=== PATIENT | male | born 1940 | race Caucasian/White ===

== ENCOUNTER 2017-06-30 14:57 | Inpatient (IN) | payer OTHER, MEDICARE ==
[~2017-06-30] VITALS: Ht 177.8 cm; Wt 77.5 kg
[2017-06-30 14:59] VITALS: BP 141/79; PULSE 89; RESP 15; TEMP 98.4; O2SAT 99
[2017-06-30] MEDS ORDERED: SODIUM CHLORIDE 0.9% FLUSH 10 ML FLUSH IVF PRN (15:45)
[2017-06-30] MEDS ORDERED: FUROSEMIDE 40 MG/4 ML VIAL IV PUSH ONE (15:45)
[2017-06-30 15:51] VITALS: BP 120/79; PULSE 114; RESP 18; O2SAT 97
--- NOTE | 2017-06-30 15:53 | PD ---
HPI Chief Complaint: Respiratory Distress Time Seen by Provider: 15:26 Travel History International Travel<30 days: No Contact w/Intl Traveler<30days: No Traveled to known affect area: No History of Present Illness HPI The patient is a 76-year-old male who presents to the emergency department for shortness of breath. The patient had a myocardial infarction in April 2017 and underwent bypass in [place]. The patient return to [place], [place], where he resides in 4 days ago developed shortness of breath. The patient's shortness of breath is worse with exertion, mild shortness of breath with lying supine, but has progressed over the last 4 days. The patient was seen by a new regional construction manager for himself today, Dr. Clayton, who referred him to the emergency department for evaluation and admission of ischemic cardiomyopathy with pleural effusions. The patient does state he is currently on Coumadin secondary to the recent bypass, denies any history of pulmonary embolism or DVT. The patient denies any acute chest pain, nausea, vomiting, abdominal pain, or diaphoresis. The patient's symptoms are moderate, worse with exertion and lying supine, and there are no current leaving factors. The patient's primary physician is Dr. Lockhart. [facility] Past Medical History Cardiac Catheterization: Yes Cardiovascular Problems: Yes (CABG X 4) Diabetes: Yes Patient Takes Glucophage: No Myocardial Infarction: Yes Tetanus Vaccination: Unknown Influenza Vaccination: Yes Past Surgical History Cardiac Surgery: Yes (5 ARTERIES REPLACED) Cholecystectomy: Yes Coronary Artery Bypass Graft: Yes Other Surgery: Yes (HERNIA REPAIR ) Social History Alcohol Use: No Tobacco Use: No Substance Use: No Allergies-Medications (Allergen,Severity, Reaction): Coded Allergies: aspirin (Verified Allergy, Severe, RESP DISTRESS, 06/30/17) Review of Systems Except as stated in HPI: all other systems reviewed are Neg General / Constitutional: No: Fever HENT: No: Lightheadedness Cardiovascular: Positive: Dyspnea on exertion, No: Chest Pain or Discomfort Respiratory: Positive: Shortness of Breath Gastrointestinal: No: Nausea, Vomiting, Abdominal Pain Genitourinary: No: Dysuria Musculoskeletal: No: Weakness Neurologic: No: Weakness, Dizziness Physical Exam Narrative GENERAL: Awake, alert, very pleasant 76-year-old male who appears his stated age and appears in mild respiratory distress. SKIN: Focused skin assessment warm/dry. HEAD: Atraumatic. Normocephalic. EYES: No injection or drainage. ENT: No nasal bleeding or discharge. Mucous membranes pink and moist. NECK: Trachea midline. No JVD. CARDIOVASCULAR: Regular, tachycardic with a heart rate of 117. Well-healed sternal scar. RESPIRATORY: Mild tachypnea with a respiratory rate of 22. Bowels in the bases bilateral. GASTROINTESTINAL: Abdomen soft, non-tender, nondistended. No rebound tenderness. MUSCULOSKELETAL: No obvious deformities. No clubbing. No cyanosis. Trace edema bilaterally. NEUROLOGICAL: Awake and alert. No obvious cranial nerve deficits. Motor grossly within normal limits. Normal speech. PSYCHIATRIC: Appropriate mood and affect; insight and judgment normal. Data Data Last Documented VS Vital Signs Date Time Temp Pulse Resp B/P (MAP) Pulse Ox O2 Delivery O2 Flow Rate FiO2 06/30/17 15:51 114 18 120/79 (93) 97 Nasal Cannula 2.00 06/30/17 14:59 98.4 Orders Orders Complete Blood Count With Diff (06/30/17 15:35) Comprehensive Metabolic Panel (06/30/17 15:35) B-Type Natriuretic Peptide (06/30/17 15:35) Act Partial Throm Time (Ptt) (06/30/17 15:35) Prothrombin Time / Inr (Pt) (06/30/17 15:35) Magnesium (Mg) (06/30/17 15:35) Ckmb (Isoenzyme) Profile (06/30/17 15:35) Troponin I (06/30/17 15:35) Iv Access Insert/Monitor (06/30/17 15:35) Electrocardiogram (06/30/17 15:35) Ecg Monitoring (06/30/17 15:35) Oximetry (06/30/17 15:35) Oxygen Administration (06/30/17 15:35) Chest, Single Ap (06/30/17 15:35) Sodium Chloride 0.9% Flush (Ns Flush) (06/30/17 15:45) Furosemide Inj (Lasix Inj) (06/30/17 15:45) Consult Cardiology (06/30/17 ) (Hub Use Only)Inp Phy Cons/Ref (06/30/17 ) Admit Order (Ed Use Only) (06/30/17 ) Donor Support Technician / Telemetry [email or web address] (06/30/17 17:22) Vital Signs (Adult) Q4H (06/30/17 17:22) Diet Heart Healthy (06/30/17 Dinner) Activity Oob With Assistance (06/30/17 17:22) Labs Laboratory Tests Test 06/30/17 15:45 White Blood Count 10.7 TH/MM3 Red Blood Count 3.96 MIL/MM3 Hemoglobin 11.4 GM/DL Hematocrit 35.5 % Mean Corpuscular Volume 89.6 FL Mean Corpuscular Hemoglobin 28.8 PG Mean Corpuscular Hemoglobin Concent 32.1 % Red Cell Distribution Width 15.9 % Platelet Count 349 TH/MM3 Mean Platelet Volume 8.2 FL Neutrophils (%) (Auto) 62.7 % Lymphocytes (%) (Auto) 22.8 % Monocytes (%) (Auto) 10.6 % Eosinophils (%) (Auto) 3.2 % Basophils (%) (Auto) 0.7 % Neutrophils # (Auto) 6.7 TH/MM3 Lymphocytes # (Auto) 2.4 TH/MM3 Monocytes # (Auto) 1.1 TH/MM3 Eosinophils # (Auto) 0.3 TH/MM3 Basophils # (Auto) 0.1 TH/MM3 CBC Comment DIFF FINAL Differential Comment Prothrombin Time 24.0 SEC Prothromb Time International Ratio 2.1 RATIO Activated Partial Thromboplast Time 33.1 SEC Blood Urea Nitrogen 10 MG/DL Creatinine 1.13 MG/DL Random Glucose 101 MG/DL Total Protein 7.5 GM/DL Albumin 3.4 GM/DL Calcium Level 8.8 MG/DL Magnesium Level 2.2 MG/DL Alkaline Phosphatase 79 U/L Aspartate Amino Transf (AST/SGOT) 23 U/L Alanine Aminotransferase (ALT/SGPT) 29 U/L Total Bilirubin 0.6 MG/DL Sodium Level 139 MEQ/L Potassium Level 4.3 MEQ/L Chloride Level 108 MEQ/L Carbon Dioxide Level 21.3 MEQ/L Anion Gap 10 MEQ/L Estimat Glomerular Filtration Rate 63 ML/MIN Total Creatine Kinase 71 U/L Troponin I 0.03 NG/ML B-Type Natriuretic Peptide 505 PG/ML MDM Medical Decision Making Medical Screen Exam Complete: Yes Emergency Medical Condition: Yes Medical Record Reviewed: Yes Interpretation(s) EKG reveals sinus tachycardia. Low QRS voltage in the extremity leads. Q wave noted in lead V1, V2, V3, V4, V5, and V6. Last Impressions Chest X-Ray 06/30/17 1535 Signed Impressions: Service Date/Time: Friday, June 30, 2017 15:46 - CONCLUSION: 1. Postsurgical features. 2. Minimal bibasilar airspace disease, presumably atelectasis. Differential considerations include aspiration and less likely pneumonia in the appropriate clinical setting. 3. Probable trace bilateral pleural effusions. Felice Galvan MD Laboratory Tests Test 06/30/17 15:45 White Blood Count 10.7 TH/MM3 Red Blood Count 3.96 MIL/MM3 Hemoglobin 11.4 GM/DL Hematocrit 35.5 % Mean Corpuscular Volume 89.6 FL Mean Corpuscular Hemoglobin 28.8 PG Mean Corpuscular Hemoglobin Concent 32.1 % Red Cell Distribution Width 15.9 % Platelet Count 349 TH/MM3 Mean Platelet Volume 8.2 FL Neutrophils (%) (Auto) 62.7 % Lymphocytes (%) (Auto) 22.8 % Monocytes (%) (Auto) 10.6 % Eosinophils (%) (Auto) 3.2 % Basophils (%) (Auto) 0.7 % Neutrophils # (Auto) 6.7 TH/MM3 Lymphocytes # (Auto) 2.4 TH/MM3 Monocytes # (Auto) 1.1 TH/MM3 Eosinophils # (Auto) 0.3 TH/MM3 Basophils # (Auto) 0.1 TH/MM3 CBC Comment DIFF FINAL Differential Comment Prothrombin Time 24.0 SEC Prothromb Time International Ratio 2.1 RATIO Activated Partial Thromboplast Time 33.1 SEC Blood Urea Nitrogen 10 MG/DL Creatinine 1.13 MG/DL Random Glucose 101 MG/DL Total Protein 7.5 GM/DL Albumin 3.4 GM/DL Calcium Level 8.8 MG/DL Magnesium Level 2.2 MG/DL Alkaline Phosphatase 79 U/L Aspartate Amino Transf (AST/SGOT) 23 U/L Alanine Aminotransferase (ALT/SGPT) 29 U/L Total Bilirubin 0.6 MG/DL Sodium Level 139 MEQ/L Potassium Level 4.3 MEQ/L Chloride Level 108 MEQ/L Carbon Dioxide Level 21.3 MEQ/L Anion Gap 10 MEQ/L Estimat Glomerular Filtration Rate 63 ML/MIN Total Creatine Kinase 71 U/L Troponin I 0.03 NG/ML B-Type Natriuretic Peptide 505 PG/ML Differential Diagnosis Differential diagnosis includes ischemic cardiomyopathy, pleural effusion, pneumonia, pericardial effusion, pericardial tap and on, hemothorax, pneumothorax, pulmonary embolism, ACS. Narrative Course IV was established, labs are drawn and sent, and the patient was placed on cardiac telemetry monitoring and continuous pulse oximetry monitoring. EKG was ordered and interpreted. I discussed the patient with his regional construction manager, Dr. Clayton, made several recommendations including: Lasix 40 mg intravenously twice a day Metoprolol 25 mg twice a day, Valsartan 40 mg every 12 The patient was administered Lasix 40 mg intravenously. Chest x-ray was obtained. INR was sent to lab. The patient's INR is 2.1, I doubt pulmonary embolism with therapeutic INR. Chest x-ray does reveal bilateral pleural effusions. BNP is elevated at 505. The patient has [employer], therefore, patient will be admitted to [facility]. The patient also may need AICD placement versus LifeVest placement after echocardiogram is performed and pending on the patient's ejection fraction. Physician Communication Physician Communication [facility] were paged for admission. I discussed the patient with Dr. Cobian who agrees with admission. Diagnosis Primary Impression: Ischemic cardiomyopathy Additional Impression: Congestive heart failure Qualified Codes: I50.9 - Heart failure, unspecified Admitting Information Admitting Physician Requests: Admit Condition: Stable Rey Tejada MD Jun 30, 2017 15:53
--- NOTE | 2017-06-30 16:03 | RADRPT ---
EXAM DATE/TIME: 06/30/2017 15:46 [facility] COMPARISON: No previous studies available for comparison. INDICATIONS : Shortness of breath. MEDICAL HISTORY : None. SURGICAL HISTORY : Open heart ENCOUNTER: Initial ACUITY: 3 days PAIN SCORE: 5/10 LOCATION: Bilateral chest FINDINGS: Postsurgical features of prior median sternotomy and cardiac surgery. Mild diffuse interstitial promi nence with mild bibasilar airspace disease and questionable trace bilateral pleural effusions. Cardia c silhouette is within normal limits given portable technique. Bony thorax is intact. CONCLUSION: 1. Postsurgical features. 2. Minimal bibasilar airspace disease, presumably atelectasis. Differential considerations include as piration and less likely pneumonia in the appropriate clinical setting. 3. Probable trace bilateral pleural effusions. Felice Galvan MD on June 30, 2017 at 15:59 Board Certified Radiologist. This report was verified electronically.
[2017-06-30 16:05] LABS: AUTOMATED NEUTROPHIL # 6.7 TH/MM3 (1.8-7.7); BASOPHIL # 0.1 TH/MM3 (0-0.2); BASOPHIL % 0.7 % (0.0-2.0); EOSINOPHIL # 0.3 TH/MM3 (0-0.4); EOSINOPHIL % 3.2 % (0.0-4.0); HEMATOCRIT 35.5 % (39.0-51.0); HEMO FLAGS DIFF FINAL; LYMPH % 22.8 % (9.0-44.0); LYMPHOCYTE # 2.4 TH/MM3 (1.0-4.8); MEAN CELL VOLUME 89.6 FL (80.0-100.0); MEAN CORPUSCULAR HEMOGLOBIN 28.8 PG (27.0-34.0); MEAN CORPUSCULAR HGB CONC 32.1 % (32.0-36.0); MONO % 10.6 % (0.0-8.0); NEUT % 62.7 % (16.0-70.0); PLATELET COUNT 349 TH/MM3 (150-450); RED BLOOD COUNT 3.96 MIL/MM3 (4.50-5.90); RED CELL DISTRIBUTION WIDTH 15.9 % (11.6-17.2); WHITE BLOOD COUNT 10.7 TH/MM3 (4.0-11.0)
[2017-06-30 16:22] LABS: APTT (PATIENT) 33.1 SEC (24.3-30.1); INTERNATIONAL NORMALIZED RATIO 2.1 RATIO
[2017-06-30 16:40] LABS: ALKALINE PHOSPHATASE 79 U/L (45-117); ALT (GPT) 29 U/L (12-78); ANION GAP 10 MEQ/L (5-15); AST (GOT) 23 U/L (15-37); BICARBONATE 21.3 MEQ/L (21.0-32.0); BLOOD UREA NITROGEN 10 MG/DL (7-18); CHLORIDE 108 MEQ/L (98-107); GLOMERULAR FILTRATION RATE 63 ML/MIN (>89); MAGNESIUM 2.2 MG/DL (1.5-2.5); POTASSIUM 4.3 MEQ/L (3.5-5.1); SODIUM (NA) 139 MEQ/L (136-145); TOTAL BILIRUBIN ADULT 0.6 MG/DL (0.2-1.0)
[2017-06-30 16:46] LABS: CREATINE KINASE 71 U/L (39-308)
[2017-06-30] MEDS ORDERED: ONDANSETRON HCL 4 MG/2 ML VIAL IVP PRN (17:30)
[2017-06-30] MEDS ORDERED: SENNOSIDES 8.6 MG TAB PO PRN (17:30)
[2017-06-30] MEDS ORDERED: LACTULOSE SYRUP 20 GM/30 ML CUP PO PRN (17:30)
[2017-06-30] MEDS ORDERED: MAGNESIUM HYDROXIDE SUSP 30 ML CUP PO PRN (17:30)
[2017-06-30] MEDS ORDERED: SODIUM CHLORIDE 0.9% FLUSH 10 ML FLUSH IV FLUSH PRN (17:30)
[2017-06-30] MEDS ORDERED: BISACODYL 10 MG SUPP RECTAL PRN (17:30)
[2017-06-30] MEDS ORDERED: NALOXONE HCL 0.4 MG/ML AMP IV PUSH PRN (17:30)
[2017-06-30] MEDS: POTASSIUM CHLORIDE 20 MEQ CONTROLLED RELEASE TAB PO SCH (18:00)
[2017-06-30] MEDS: FUROSEMIDE 40 MG/4 ML VIAL IV PUSH SCH (18:00)
--- NOTE | 2017-06-30 18:12 | HHI.HP ---
HPI Service [facility] Primary Care Physician Nabila Lockhart DO Admission Diagnosis ischemic cardiomyopathy, congestive heart failure Diagnoses: Chief Complaint: Progressive shortness of breath Travel History International Travel<30 Days: No Contact w/Intl Traveler <30 Da: No Traveled to Known Affected Are: No History of Present Illness Written by Joann Stokes, acting as scribe for Dr. Cobian on 06/30/17 at 18: 03. This is an active 76-year-old male without any significant past medical history until he suffered an LA while in [place] in April of this year and underwent CABG4. Patient's postoperative course was complicated by pneumonia. Patient states he spent about 4 weeks in [place] before returning back home to [facility] where he resides. Patient states that he's been "going downhill " for the past several weeks with increasing difficulty with shortness of breath. He states he is unable to lie flat due to increased shortness of breath and as as a result has not been getting much sleep. He states that since the surgery he's had cough and chest pain associated with the cough only but reports both have improved in the past week. He endorses a poor appetite and occasional difficulty with swallowing. He states he has a chalky taste in his mouth. He denies any lower extremity swelling or significant weight gain. He denies any complaints of fever or chills. He denies any weakness or vision changes. He denies any nausea vomiting or abdominal pain. He denies any issues with diarrhea constipation or urinary complaints. Patient reports he has usually walk about a mile a day but last night he was only able to walk about 100 feet before having to stop due to severe dyspnea and wheezing. Patient had his initial cardiology visit with Dr. Clayton today who sent the patient directly over from his office for suspected ischemic cardiomyopathy and decompensated congestive heart failure. Review of Systems Except as stated in HPI: all other systems reviewed are Neg Past Family Social History Past Medical History CAD with recent LA in April 2017 Past Surgical History CABG 4 in [place] April 2017 Cholecystectomy Hernia repair Bilateral rotator cuff repair Reported Medications Medication reconciliation not completed as of yet Allergies: Coded Allergies: aspirin (Verified Allergy, Severe, RESP DISTRESS, 06/30/17) Active Ordered Medications Current Medications Medications (Trade) Dose Ordered Sig/Nava Route Start Time Stop Time Status Last Admin (NS Flush) 2 ml UNSCH PRN IV FLUSH 06/30/17 17:30 (NS Flush) 2 ml BID IV FLUSH 06/30/17 21:00 (Zofran Inj) 4 mg Q6H PRN IVP 06/30/17 17:30 (Narcan Inj) 0.4 mg UNSCH PRN IV PUSH 06/30/17 17:30 (Milk Of Magnesia Liq) 30 ml Q12H PRN PO 06/30/17 17:30 (Senokot) 17.2 mg Q12H PRN PO 06/30/17 17:30 (Dulcolax Supp) 10 mg DAILY PRN RECTAL 06/30/17 17:30 (Lactulose Liq) 30 ml DAILY PRN PO 06/30/17 17:30 (Toprol Xl) 25 mg BID PO 06/30/17 21:00 UNV (Diovan) 40 mg BID PO 06/30/17 21:00 UNV (Aspirin Chew) 81 mg DAILY CHEW 07/01/17 09:00 UNV (Lasix Inj) 40 mg BID@09,18 IV PUSH 06/30/17 18:00 UNV (Aldactone) 25 mg DAILY PO 07/01/17 09:00 UNV (KCl) 20 meq TID PO 06/30/17 18:00 UNV Family History Father, brain tumor Mother, age 68, "pulmonary problems" Social History Patient denies any tobacco use. Denies alcohol consumption. He denies any illicit drug use. Patient is and lives with his . Physical Exam Vital Signs Vital Signs Date Time Temp Pulse Resp B/P (MAP) Pulse Ox O2 Delivery O2 Flow Rate FiO2 06/30/17 15:51 114 18 120/79 (93) 97 Nasal Cannula 2.00 06/30/17 15:51 97 Nasal Cannula 2.00 06/30/17 15:30 119 18 97 Nasal Cannula 2.00 06/30/17 14:59 98.4 89 15 141/79 (99) 99 Physical Exam GENERAL: This is a well-nourished, well-developed patient, in no apparent distress. Sitting up in hospital bed. Awake and alert. and son at the bedside. SKIN: No rashes, ecchymoses or lesions. Cool and dry. HEAD: Atraumatic. Normocephalic. No temporal or scalp tenderness. EYES: Pupils equal round and reactive. Extraocular motions intact. No scleral icterus. No injection or drainage. ENT: Nose without bleeding, purulent drainage or septal hematoma. Throat without erythema or tonsillar hypertrophy but positive for whitish plaque c/w candidiasis. Uvula midline. Airway patent. NECK: Trachea midline. No lymphadenopathy. Supple, nontender, no meningeal signs. CARDIOVASCULAR: Tachycardiac. Midline sternal surgical incision well-healed. RESPIRATORY: BS decreased at bilateral bases. Breath sounds equal bilaterally. No wheezes, rales, or rhonchi. GASTROINTESTINAL: Abdomen soft, non-tender, nondistended. No hepato-splenomegaly , or palpable masses. No guarding. MUSCULOSKELETAL: Extremities without clubbing, cyanosis, or edema. No joint tenderness, effusion, or edema noted. No calf tenderness. NEUROLOGICAL: Awake and alert. Able to move all extremities. Motor and sensory grossly intact. No focal neurologic findings appreciated. Normal speech. Laboratory Laboratory Tests Test 06/30/17 15:45 White Blood Count 10.7 Red Blood Count 3.96 Hemoglobin 11.4 Hematocrit 35.5 Mean Corpuscular Volume 89.6 Mean Corpuscular Hemoglobin 28.8 Mean Corpuscular Hemoglobin Concent 32.1 Red Cell Distribution Width 15.9 Platelet Count 349 Mean Platelet Volume 8.2 Neutrophils (%) (Auto) 62.7 Lymphocytes (%) (Auto) 22.8 Monocytes (%) (Auto) 10.6 Eosinophils (%) (Auto) 3.2 Basophils (%) (Auto) 0.7 Neutrophils # (Auto) 6.7 Lymphocytes # (Auto) 2.4 Monocytes # (Auto) 1.1 Eosinophils # (Auto) 0.3 Basophils # (Auto) 0.1 CBC Comment DIFF FINAL Differential Comment Prothrombin Time 24.0 Prothromb Time International Ratio 2.1 Activated Partial Thromboplast Time 33.1 Blood Urea Nitrogen 10 Creatinine 1.13 Random Glucose 101 Total Protein 7.5 Albumin 3.4 Calcium Level 8.8 Magnesium Level 2.2 Alkaline Phosphatase 79 Aspartate Amino Transf (AST/SGOT) 23 Alanine Aminotransferase (ALT/SGPT) 29 Total Bilirubin 0.6 Sodium Level 139 Potassium Level 4.3 Chloride Level 108 Carbon Dioxide Level 21.3 Anion Gap 10 Estimat Glomerular Filtration Rate 63 Total Creatine Kinase 71 Troponin I 0.03 B-Type Natriuretic Peptide 505 Result Diagram: 06/30/17 1545 06/30/17 1545 Imaging Last Impressions Chest X-Ray 06/30/17 1535 Signed Impressions: Service Date/Time: Friday, June 30, 2017 15:46 - CONCLUSION: 1. Postsurgical features. 2. Minimal bibasilar airspace disease, presumably atelectasis. Differential considerations include aspiration and less likely pneumonia in the appropriate clinical setting. 3. Probable trace bilateral pleural effusions. MD Kirstie Grossman VTE Risk Assessment Caprincony VTE Risk Assessment: Mod/High Risk (score >= 2) Caprini Risk Assessment Model Point Value = 1 Point Value = 2 Point Value = 3 Point Value = 5 Age 41-60 Minor surgery BMI > 25 kg/m2 Swollen legs Varicose veins or History of unexplained or recurrent spontaneous Oral contraceptives or hormone replacement Sepsis (< 1 month) Serious lung disease, including pneumonia (< 1 month) Abnormal pulmonary function Acute myocardial infarction Congestive heart failure (< 1 month) History of inflammatory bowel disease Medical patient at bed rest Age 61-74 Arthroscopic surgery Major open surgery (> 45 min) Laparoscopic surgery (> 45 min) Malignancy Confined to bed (> 72 hours) Immobilizing plaster cast Central venous access Age >= 75 History of VTE Family history of VTE Factor V Leiden Prothrombin [id number] Lupus anticoagulant Anticardiolipin antibodies Elevated serum homocysteine Heparin-induced thrombocytopenia Other congenital or acquired thrombophilia Stroke (< 1 month) Elective arthroplasty Hip, pelvis, or leg fracture Acute spinal cord injury (< 1 month) Prophylaxis Regimen Total Risk Factor Score Risk Level Prophylaxis Regimen 0-1 Low Early ambulation 2 Moderate Order ONE of the following: *Sequential Compression Device (SCD) *Heparin 5000 units SQ BID 3-4 Higher Order ONE of the following medications: *Heparin 5000 units SQ TID *Enoxaparin/Lovenox 40 mg SQ daily (WT < 150 kg, CrCl > 30 mL/min) *Enoxaparin/Lovenox 30 mg SQ daily (WT < 150 kg, CrCl > 10-29 mL/min) *Enoxaparin/Lovenox 30 mg SQ BID (WT < 150 kg, CrCl > 30 mL/min) AND/OR *Sequential Compression Device (SCD) 5 or more Highest Order ONE of the following medications: *Heparin 5000 units SQ TID (Preferred with Epidurals) *Enoxaparin/Lovenox 40 mg SQ daily (WT < 150 kg, CrCl > 30 mL/min) *Enoxaparin/Lovenox 30 mg SQ daily (WT < 150 kg, CrCl > 10-29 mL/min) *Enoxaparin/Lovenox 30 mg SQ BID (WT < 150 kg, CrCl > 30 mL/min) AND *Sequential Compression Device (SCD) Assessment and Plan Assessment and Plan 76-year-old male without any significant past medical history until he suffered an LA while in [place] in April of this year and underwent CABG4 with complaints of progressive shortness of breath sent over from the office by his sweatband shaper Dr. Clayton for decompensated congestive heart failure and suspected ischemic cardiomyopathy. CAD s/p recent LA and CABG x 4 04/2017 on Coumadin CHF, decompensated Suspected ischemic cardiomyopathy - Patient given dose of Lasix in the ED. - Dr. Clayton consulted while patient in the ED and has started patient on ASA daily, Valsartan 40mg BID, Furosemide 40mg IV BID, KCL 20meq po TID and Spironolactone 25mg daily. Additionally, he has ordered 2D echo and will follow up on results. - Monitor electrolytes while diuresing. - Chest x-ray personally interpreted showing minimal bibasilar airspace disease presumably atelectasis and probable trace bilateral pleural effusions - EKG personally reviewed revealing sinus tachycardia and Q waves in leads V1 , V2, V3, V4, V5, and V6 - BNP 505 - Heart healthy diet with low salt and fluid restrictions - continuous cardiac monitoring - CHF teaching - strict I&Os - Supplemental oxygen - monitor PT/INR - PT eval/tx Recent pneumonia following CABG - CXR as stated above. No e/o pneumonia at this time. Patient is afebrile. White count is normal. - monitor respiratory status - IS at bedside, encourage use Oral candidiasis - Nystatin s/s - monitor DVT prophylaxis - Bilateral SCD/RACHEL keee Discussed Condition With ED physician, Dr. Clayton, patient, and son Physician Certification 2 Midnight Certification Type: Admission for Inpatient Services Order for Inpatient Services The services are ordered in accordance with Medicare regulations or non- Medicare payer requirements, as applicable. In the case of services not specified as inpatient-only, they are appropriately provided as inpatient services in accordance with the 2-midnight benchmark. Estimated LOS (days): 3 3 days is the estimated time the patient will need to remain in the hospital, assuming treatment plan goals are met and no additional complications. Post-Hospital Plan: Not yet determined Notes: This note was transcribed by scribe [Joann Stokes]. I, Dr. Yobani Cobian personally performed the history, physical exam, and medical decision making; and confirmed the accuracy of the information in the transcribed note. Authenticated by Dr. Yobani Cobian on 07/01/17 at 11:13. Joann Stokes Jun 30, 2017 18:12 Yobani Cobian MD Jul 01, 2017 11:13
[2017-06-30 18:55] VITALS: BP 110/68; PULSE 108; RESP 16; O2SAT 98
[2017-06-30 19:37] VITALS: BP 103/70; PULSE 109; RESP 24; O2SAT 95
[2017-06-30] MEDS: SODIUM CHLORIDE 0.9% FLUSH 10 ML FLUSH IV FLUSH SCH (21:00)
[2017-06-30] MEDS: METOPROLOL SUCCINATE 25 MG EXTENDED RELEASE TAB PO SCH (21:00)
[2017-06-30] MEDS: VALSARTAN 40 MG TAB PO SCH (21:00)
[2017-06-30 21:49] VITALS: BP 109/64; PULSE 113; RESP 20; O2SAT 95
[2017-07-01] VITALS (20 sets, daily range): BP systolic 84–100; BP diastolic 55–69; PULSE 96–111; RESP 18–20; TEMP 98.1–98.7; O2SAT 94–100
[2017-07-01] MEDS ORDERED: diphenhydrAMINE HCL 25 MG CAP PO ONE (02:45)
[2017-07-01] MEDS ORDERED: TRIA1SPR5 EACH NARE (04:03)
[2017-07-01] MEDS ORDERED: LIPI20TA PO (04:03)
[2017-07-01] MEDS ORDERED: WARF-20 PO (04:03)
[2017-07-01] MEDS ORDERED: FUROSEMIDE 40 MG/4 ML VIAL IV PUSH ONE (04:45)
[2017-07-01 07:52] LABS: BASOPHIL # 0.1 TH/MM3 (0-0.2); BASOPHIL % 0.6 % (0.0-2.0); EOSINOPHIL # 0.3 TH/MM3 (0-0.4); EOSINOPHIL % 3.2 % (0.0-4.0); HEMATOCRIT 34.5 % (39.0-51.0); HEMO FLAGS DIFF FINAL; LYMPH % 17.8 % (9.0-44.0); LYMPHOCYTE # 1.8 TH/MM3 (1.0-4.8); MEAN CELL VOLUME 88.4 FL (80.0-100.0); MEAN CORPUSCULAR HEMOGLOBIN 28.9 PG (27.0-34.0); MEAN CORPUSCULAR HGB CONC 32.6 % (32.0-36.0); MONO % 9.1 % (0.0-8.0); NEUT % 69.3 % (16.0-70.0); PLATELET COUNT 346 TH/MM3 (150-450); RED CELL DISTRIBUTION WIDTH 15.9 % (11.6-17.2); WHITE BLOOD COUNT 10.1 TH/MM3 (4.0-11.0)
--- NOTE | 2017-07-01 07:56 | PD.CARD.PN ---
Subjective Subjective Remarks less SOB, no CP Objective Medications Current Medications Medications (Trade) Dose Ordered Sig/Nava Route Start Time Stop Time Status Last Admin (NS Flush) 2 ml UNSCH PRN IV FLUSH 06/30/17 17:30 (NS Flush) 2 ml BID IV FLUSH 06/30/17 21:00 06/30/17 21:00 (Zofran Inj) 4 mg Q6H PRN IVP 06/30/17 17:30 (Narcan Inj) 0.4 mg UNSCH PRN IV PUSH 06/30/17 17:30 (Milk Of Magnesia Liq) 30 ml Q12H PRN PO 06/30/17 17:30 (Senokot) 17.2 mg Q12H PRN PO 06/30/17 17:30 (Dulcolax Supp) 10 mg DAILY PRN RECTAL 06/30/17 17:30 (Lactulose Liq) 30 ml DAILY PRN PO 06/30/17 17:30 (Toprol Xl) 25 mg BID PO 06/30/17 21:00 06/30/17 21:00 (Diovan) 40 mg BID PO 06/30/17 21:00 06/30/17 21:00 (Lasix Inj) 40 mg BID@09,18 IV PUSH 06/30/17 18:00 (Aldactone) 25 mg DAILY PO 07/01/17 09:00 (KCl) 20 meq TID PO 06/30/17 18:00 06/30/17 18:00 Vital Signs / I&O Vital Signs Date Time Temp Pulse Resp B/P (MAP) Pulse Ox O2 Delivery O2 Flow Rate FiO2 07/01/17 06:27 103 20 98/67 (77) 97 Nasal Cannula 2.00 07/01/17 03:58 104 20 100/61 (74) 100 Nasal Cannula 06/30/17 21:49 113 20 109/64 (79) 95 Nasal Cannula 2.00 06/30/17 19:37 109 24 103/70 (81) 95 Nasal Cannula 06/30/17 18:55 108 16 110/68 (82) 98 Nasal Cannula 2.00 06/30/17 15:51 114 18 120/79 (93) 97 Nasal Cannula 2.00 06/30/17 15:51 97 Nasal Cannula 2.00 06/30/17 15:30 119 18 97 Nasal Cannula 2.00 06/30/17 14:59 98.4 89 15 141/79 (99) 99 I/O 06/30/17 06/30/17 06/30/17 07/01/17 07/01/17 07/01/17 07:00 15:00 23:00 07:00 15:00 23:00 Intake Total 85 ml Output Total 500 ml 1100 ml 200 ml Balance -415 ml -1100 ml -200 ml Intake Oral 85 ml Output Urine Total 500 ml 1100 ml 200 ml # Voids 1 2 Physical Exam GENERAL: Well developed, well nourished. No acute distress. HEENT: Jugular venous pressure is upper nl CHEST: Lungs decreased at bases. Less labored respiratory effort. CARDIAC: Regular rate and rhythm with S3; echo pending ABDOMEN: Soft, nontender, no hepatosplenomegaly. Bowel sounds present. EXTREMITIES: No clubbing, cyanosis, or edema. Laboratory Laboratory Tests Test 06/30/17 15:45 07/01/17 06:10 White Blood Count 10.7 TH/MM3 10.1 TH/MM3 Red Blood Count 3.96 MIL/MM3 3.90 MIL/MM3 Hemoglobin 11.4 GM/DL 11.3 GM/DL Hematocrit 35.5 % 34.5 % Mean Corpuscular Volume 89.6 FL 88.4 FL Mean Corpuscular Hemoglobin 28.8 PG 28.9 PG Mean Corpuscular Hemoglobin Concent 32.1 % 32.6 % Red Cell Distribution Width 15.9 % 15.9 % Platelet Count 349 TH/MM3 346 TH/MM3 Mean Platelet Volume 8.2 FL 9.1 FL Neutrophils (%) (Auto) 62.7 % 69.3 % Lymphocytes (%) (Auto) 22.8 % 17.8 % Monocytes (%) (Auto) 10.6 % 9.1 % Eosinophils (%) (Auto) 3.2 % 3.2 % Basophils (%) (Auto) 0.7 % 0.6 % Neutrophils # (Auto) 6.7 TH/MM3 7.0 TH/MM3 Lymphocytes # (Auto) 2.4 TH/MM3 1.8 TH/MM3 Monocytes # (Auto) 1.1 TH/MM3 0.9 TH/MM3 Eosinophils # (Auto) 0.3 TH/MM3 0.3 TH/MM3 Basophils # (Auto) 0.1 TH/MM3 0.1 TH/MM3 CBC Comment DIFF FINAL DIFF FINAL Differential Comment Prothrombin Time 24.0 SEC Prothromb Time International Ratio 2.1 RATIO Activated Partial Thromboplast Time 33.1 SEC Blood Urea Nitrogen 10 MG/DL Creatinine 1.13 MG/DL Random Glucose 101 MG/DL Total Protein 7.5 GM/DL Albumin 3.4 GM/DL Calcium Level 8.8 MG/DL Magnesium Level 2.2 MG/DL Alkaline Phosphatase 79 U/L Aspartate Amino Transf (AST/SGOT) 23 U/L Alanine Aminotransferase (ALT/SGPT) 29 U/L Total Bilirubin 0.6 MG/DL Sodium Level 139 MEQ/L Potassium Level 4.3 MEQ/L Chloride Level 108 MEQ/L Carbon Dioxide Level 21.3 MEQ/L Anion Gap 10 MEQ/L Estimat Glomerular Filtration Rate 63 ML/MIN Total Creatine Kinase 71 U/L Troponin I 0.03 NG/ML B-Type Natriuretic Peptide 505 PG/ML Imaging Last 24 hours Impressions Chest X-Ray 06/30/17 1535 Signed Impressions: Service Date/Time: Friday, June 30, 2017 15:46 - CONCLUSION: 1. Postsurgical features. 2. Minimal bibasilar airspace disease, presumably atelectasis. Differential considerations include aspiration and less likely pneumonia in the appropriate clinical setting. 3. Probable trace bilateral pleural effusions. Felice Galvan MD Assessment and Plan Problem List: (1) Acute systolic CHF (congestive heart failure), NYHA class 4 ICD Codes: I50.21 - Acute systolic (congestive) heart failure (2) Ischemic cardiomyopathy ICD Codes: I25.5 - Ischemic cardiomyopathy Status: Acute Assessment and Plan Cont diuresis. Shane Clayton MD Jul 01, 2017 07:56
[2017-07-01 08:30] LABS: ANION GAP 9 MEQ/L (5-15); AST (GOT) 17 U/L (15-37); BICARBONATE 24.4 MEQ/L (21.0-32.0); BLOOD UREA NITROGEN 12 MG/DL (7-18); CHLORIDE 106 MEQ/L (98-107); GLOMERULAR FILTRATION RATE 61 ML/MIN (>89); MAGNESIUM 2.1 MG/DL (1.5-2.5); POTASSIUM 3.6 MEQ/L (3.5-5.1); SODIUM (NA) 139 MEQ/L (136-145)
[2017-07-01 08:34] LABS: ALKALINE PHOSPHATASE 76 U/L (45-117); ALT (GPT) 29 U/L (12-78); TOTAL BILIRUBIN ADULT 0.7 MG/DL (0.2-1.0)
[2017-07-01] MEDS: METOPROLOL SUCCINATE 25 MG EXTENDED RELEASE TAB PO SCH ×2 (09:00→21:15)
[2017-07-01] MEDS: SODIUM CHLORIDE 0.9% FLUSH 10 ML FLUSH IV FLUSH SCH ×2 (09:00→21:00)
[2017-07-01] MEDS ORDERED: ASPIRIN 81 MG CHEW TAB CHEW SCH (09:00)
[2017-07-01] MEDS: VALSARTAN 40 MG TAB PO SCH ×2 (09:00→21:15)
--- NOTE | 2017-07-01 09:09 | HHI.PR ---
Subjective Remarks Follow up for CHF exacerbation. Dr. Clayton already saw patient. Patient is feeling better now. Currently on 2L of O2 via NC. No chest pain, fever, chills. No leg swelling. Objective Vitals Vital Signs Date Time Temp Pulse Resp B/P (MAP) Pulse Ox O2 Delivery O2 Flow Rate FiO2 07/01/17 08:12 07/01/17 08:00 97 Nasal Cannula 2.00 07/01/17 08:00 98.3 111 18 96/58 (71) 97 07/01/17 06:27 103 20 98/67 (77) 97 Nasal Cannula 2.00 07/01/17 03:58 104 20 100/61 (74) 100 Nasal Cannula 06/30/17 21:49 113 20 109/64 (79) 95 Nasal Cannula 2.00 06/30/17 19:37 109 24 103/70 (81) 95 Nasal Cannula 06/30/17 18:55 108 16 110/68 (82) 98 Nasal Cannula 2.00 06/30/17 15:51 114 18 120/79 (93) 97 Nasal Cannula 2.00 06/30/17 15:51 97 Nasal Cannula 2.00 06/30/17 15:30 119 18 97 Nasal Cannula 2.00 06/30/17 14:59 98.4 89 15 141/79 (99) 99 I/O 06/30/17 06/30/17 06/30/17 07/01/17 07/01/17 07/01/17 07:00 15:00 23:00 07:00 15:00 23:00 Intake Total 85 ml Output Total 500 ml 1100 ml 200 ml Balance -415 ml -1100 ml -200 ml Intake Oral 85 ml Output Urine Total 500 ml 1100 ml 200 ml # Voids 1 2 Result Diagram: 07/01/17 0610 07/01/17 0610 Imaging Last Impressions Chest X-Ray 06/30/17 1535 Signed Impressions: Service Date/Time: Friday, June 30, 2017 15:46 - CONCLUSION: 1. Postsurgical features. 2. Minimal bibasilar airspace disease, presumably atelectasis. Differential considerations include aspiration and less likely pneumonia in the appropriate clinical setting. 3. Probable trace bilateral pleural effusions. Felice Galvan MD A/P Assessment and Plan 76-year-old male without any significant past medical history until he suffered an IN while in [place] in April of this year and underwent CABG4 with complaints of progressive shortness of breath sent over from the office by his inspector aide Dr. Clayton for decompensated congestive heart failure and suspected ischemic cardiomyopathy. CAD s/p recent IN and CABG x 4 04/2017 on Coumadin CHF, decompensated Suspected ischemic cardiomyopathy - Patient given dose of Lasix in the ED. - Dr. Clayton consulted while patient in the ED - Continue Valsartan 40mg BID, Furosemide 40mg IV BID, KCL 20meq po TID and Spironolactone 25mg daily. - Will consider Torsemide 10mg BID on discharge. - 2D echo pending. - BNP 505 - Heart healthy diet with low salt and fluid restrictions - continuous cardiac monitoring - Supplemental oxygen - monitor PT/INR - PT eval/tx Recent pneumonia following CABG - CXR as stated above. No e/o pneumonia at this time. Patient is afebrile. White count is normal. - monitor respiratory status - IS at bedside, encourage use Full code. Warfarin. Patient was placed on warfarin after CABG. Will discuss with Dr. Clayton regarding the need for Warfarin. Jennifer Card DO Jul 01, 2017 9:09 am
[2017-07-01] MEDS ORDERED: TEMAZEPAM 7.5 MG CAP PO PRN (09:15)
[2017-07-01] MEDS: POTASSIUM CHLORIDE 20 MEQ CONTROLLED RELEASE TAB PO SCH ×3 (10:02→18:06)
[2017-07-01] MEDS: SPIRONOLACTONE 25 MG TAB PO SCH (10:02)
[2017-07-01] MEDS: FUROSEMIDE 40 MG/4 ML VIAL IV PUSH SCH ×2 (10:02→18:07)
--- NOTE | 2017-07-01 18:30 | ECHRPT ---
Indication: CARDIOMYOPATHY CONCLUSIONS Moderately dilated left ventricle. Wall thickness is normal. The left ventricular systolic function is severely reduced with an estimated ejection fraction less than 20%. wall motion preserved at bases, apex appears akinetic There is diffuse global hypokinesis with distinct regional wall motion abnormalities. Moderate to severe mitral valve regurgitation There is mild tricuspid valve regurgitation. The estimated pulmonary arterial pressure is 47 mmHg. BP: 141 / 79 HR: Rhythm: Sinus MEASUREMENTS (Male / Female) Normal Values Technical Quality:Technically difficult study 2D ECHO LV Diastolic Diameter PLAX 6.4 cm 4.2 - 5.9 / 3.9 - 5.3 cm LV Systolic Diameter PLAX 5.8 cm IVS Diastolic Thickness 0.6 cm 0.6 - 1.0 / 0.6 - 0.9 cm LVPW Diastolic Thickness 0.7 cm 0.6 - 1.0 / 0.6 - 0.9 cm LV Relative Wall Thickness 0.2 LVOT Diameter 1.9 cm Aortic Root Diameter 2.8 cm LA Systolic Diameter LX 3.9 cm 3.0 - 4.0 / 2.7 - 3.8 cm M-MODE AV Cusp Separation MM 1.5 cm DOPPLER AV Peak Velocity 85.5 cm/s AV Peak Gradient 2.9 mmHg AV Mean Gradient 2.0 mmHg AV Velocity Time Integral 12.2 cm LVOT Peak Velocity 51.9 cm/s LVOT Peak Gradient 1.1 mmHg LVOT Velocity Time Integral 7.5 cm AV Area Cont Eq vti 1.7 cm AV Area Cont Eq pk 1.7 cm Mitral E Point Velocity 98.7 cm/s Mitral A Point Velocity 17.3 cm/s Mitral E to A Ratio 5.7 LV E' Lateral Velocity 4.3 cm/s Mitral E to LV E' Lateral Ratio 23.0 LV E' Septal Velocity 8.4 cm/s Mitral E to LV E' Septal Ratio 11.8 TR Peak Velocity 304.0 cm/s TR Peak Gradient 37.0 mmHg Right Atrial Pressure 10.0 mmHg Pulmonary Artery Systolic Pressu 47.0 mmHg Right Ventricular Systolic Press 47.0 mmHg PV Peak Velocity 41.4 cm/s PV Peak Gradient 0.7 mmHg FINDINGS LEFT VENTRICLE Moderately dilated left ventricle. Wall thickness is normal. The left ventricular systolic function is severely reduced with an estimated ejection fraction less than 20%. There is diffuse global hypokinesis with distinct regional wall motion abnormalities. MITRAL VALVE Moderate mitral valve regurgitation. TRICUSPID VALVE There is mild tricuspid valve regurgitation. The estimated pulmonary arterial pressure is 47 mmHg. Mert Caicedo MD, FACC, [facility] (Electronically Signed) Final Date:01 July 2017 18:30
[2017-07-01] MEDS ORDERED: METF500T PO (21:06)
[2017-07-02] VITALS (25 sets, daily range): BP systolic 86–91; BP diastolic 57–63; PULSE 97–115; RESP 18–19; TEMP 97.7–98.3; O2SAT 93–97
[2017-07-02 07:26] LABS: BICARBONATE 21.9 MEQ/L (21.0-32.0); MAGNESIUM 2.1 MG/DL (1.5-2.5)
[2017-07-02 07:35] LABS: POTASSIUM 4.6 MEQ/L (3.5-5.1)
--- NOTE | 2017-07-02 07:38 | EKG ---
Date Performed: 06/30/2017 Time Performed: 16:00:26 PTAGE: 76 years EKG: SINUS TACHYCARDIA POSSIBLE LEFT ATRIAL ENLARGEMENT LOW QRS VOLTAGE IN EXTREMITY LEADS ANTER OLATERAL MYOCARDIAL INFARCTION, AGE UNDETERMINED ACUTE [place] NO PREVIOUS TRACING DOCTOR: Mert Caicedo Interpretating Date/Time 07/02/2017 07:37:07
[2017-07-02] MEDS: SPIRONOLACTONE 25 MG TAB PO SCH (09:00)
[2017-07-02] MEDS: METOPROLOL SUCCINATE 25 MG EXTENDED RELEASE TAB PO SCH ×2 (09:00→20:39)
[2017-07-02] MEDS: VALSARTAN 40 MG TAB PO SCH ×2 (09:00→20:39)
[2017-07-02] MEDS: POTASSIUM CHLORIDE 20 MEQ CONTROLLED RELEASE TAB PO SCH (09:26)
[2017-07-02] MEDS: FUROSEMIDE 40 MG/4 ML VIAL IV PUSH SCH ×2 (09:27→17:09)
[2017-07-02] MEDS: SODIUM CHLORIDE 0.9% FLUSH 10 ML FLUSH IV FLUSH SCH ×2 (09:29→20:39)
--- NOTE | 2017-07-02 09:32 | HHI.PR ---
Subjective Remarks Pt states that he is feeling better. SOB is improved. Gets some chest discomfort whenever he coughs but this is not new for him. No chest pain at this time. No nausea or vomiting. Objective Vitals Vital Signs Date Time Temp Pulse Resp B/P (MAP) Pulse Ox O2 Delivery O2 Flow Rate FiO2 07/02/17 09:00 107 07/02/17 08:00 102 07/02/17 07:00 94 Room Air 07/02/17 07:00 107 07/02/17 07:00 98.1 104 19 88/60 (69) 94 07/02/17 06:00 97 07/02/17 05:00 101 07/02/17 04:00 102 07/02/17 03:00 102 07/02/17 03:00 95 Room Air 07/02/17 03:00 97.7 104 18 91/63 (72) 95 07/02/17 02:00 100 07/02/17 01:00 102 07/02/17 00:00 100 07/01/17 23:10 94 Nasal Cannula 2.00 07/01/17 23:10 98.2 99 18 88/57 (67) 94 07/01/17 23:00 101 07/01/17 22:00 102 07/01/17 21:00 104 07/01/17 20:30 98.1 105 18 95/69 (78) 97 07/01/17 20:30 97 Nasal Cannula 2.00 07/01/17 20:00 106 07/01/17 19:00 106 07/01/17 18:00 109 07/01/17 17:00 106 07/01/17 16:00 99 07/01/17 15:00 98.2 102 20 88/60 (69) 96 07/01/17 15:00 106 07/01/17 15:00 98 Room Air 07/01/17 14:00 110 07/01/17 14:00 96 Nasal Cannula 1.00 07/01/17 13:00 103 07/01/17 12:00 98 07/01/17 11:00 98.7 96 18 84/58 (67) 99 07/01/17 11:00 99 Nasal Cannula 2.00 07/01/17 11:00 100 07/01/17 10:00 100 07/01/17 10:00 86/55 (65) I/O 07/01/17 07/01/17 07/01/17 07/02/17 07/02/17 07/02/17 07:00 15:00 23:00 07:00 15:00 23:00 Intake Total 720 ml 360 ml Output Total 1100 ml 200 ml 700 ml 900 ml Balance -1100 ml -200 ml 20 ml -540 ml Intake Oral 720 ml 360 ml Output Urine Total 1100 ml 200 ml 700 ml 900 ml # Voids 2 # Bowel Movements 1 0 Result Diagram: 07/01/17 0610 07/02/17 0504 Imaging Last Impressions Chest X-Ray 06/30/17 1535 Signed Impressions: Service Date/Time: Friday, June 30, 2017 15:46 - CONCLUSION: 1. Postsurgical features. 2. Minimal bibasilar airspace disease, presumably atelectasis. Differential considerations include aspiration and less likely pneumonia in the appropriate clinical setting. 3. Probable trace bilateral pleural effusions. Felice Galvan MD Objective Remarks GENERAL APPEARANCE: This 76 year old patient is a well-developed, well-nourished , sitting up on side of bed. SKIN: Skin is warm and dry without swelling. HEENT: Airway is patent. Extra ocular motions are intact. LUNGS: Equal and bilateral breath sounds without wheezes HEART: regular rate and rhythm without murmur ABDOMEN: Soft, non tender, no guarding or rebound. EXTREMITIES: no edema. NEUROLOGIC: awake and alert. moves all extremities w no difficulty. A/P Assessment and Plan 76-year-old male without any significant past medical history until he suffered an OK while in [place] in April of this year and underwent CABG4 with complaints of progressive shortness of breath sent over from the office by his change coordinator Dr. Clayton for decompensated congestive heart failure and suspected ischemic cardiomyopathy. CAD s/p recent OK and CABG x 4 04/2017 on Coumadin, pt not aware why he was placed on this. tells me that Dr. Clayton is looking into this and he states that he has had trouble getting his INR therapeutic CHF, decompensated Suspected ischemic cardiomyopathy - s/p Lasix in the ED and now on lasix 40mg IV BID. - Dr. Clayton following. - Continue Valsartan 40mg BID, Furosemide 40mg IV BID, KCL 20meq po TID and Spironolactone 25mg daily w holding parameters however, pt will not get it this morning as BP's in the 90's - 2D echo shows EF of 20% and mod to severe mitral valve regurg. - BNP 505 - Heart healthy diet with low salt <2g/day and fluid restrictions at 1500ml/ day - continuous cardiac monitoring - Supplemental oxygen - monitor PT/INR. pharmacy consult placed for assistance w coumadin management. - PT eval/tx Recent pneumonia following CABG - CXR as stated above. No e/o pneumonia at this time. Patient is afebrile. White count is normal. - monitor respiratory status - IS at bedside, encourage use DVT proph:. Warfarin. Patient was placed on warfarin after CABG. Per pt, Dr. Clayton is looking into this however pt doesn't know why he was started on the coumadin. Discharge Planning continue current management. Cards recs appreciated. Melissa Thakur MD Jul 02, 2017 09:32
--- NOTE | 2017-07-02 11:32 | PD.CARD.PN ---
Subjective Subjective Remarks less SOB, no CP Objective Medications Current Medications Medications (Trade) Dose Ordered Sig/Nava Route Start Time Stop Time Status Last Admin (NS Flush) 2 ml UNSCH PRN IV FLUSH 06/30/17 17:30 (NS Flush) 2 ml BID IV FLUSH 06/30/17 21:00 07/02/17 09:29 (Zofran Inj) 4 mg Q6H PRN IVP 06/30/17 17:30 (Narcan Inj) 0.4 mg UNSCH PRN IV PUSH 06/30/17 17:30 (Milk Of Magnesia Liq) 30 ml Q12H PRN PO 06/30/17 17:30 (Senokot) 17.2 mg Q12H PRN PO 06/30/17 17:30 (Dulcolax Supp) 10 mg DAILY PRN RECTAL 06/30/17 17:30 (Lactulose Liq) 30 ml DAILY PRN PO 06/30/17 17:30 (Toprol Xl) 25 mg BID PO 06/30/17 21:00 07/01/17 21:15 (Diovan) 40 mg BID PO 06/30/17 21:00 07/01/17 21:15 (Lasix Inj) 40 mg BID@09,18 IV PUSH 06/30/17 18:00 07/02/17 09:27 (Aldactone) 25 mg DAILY PO 07/01/17 09:00 07/01/17 10:02 (Restoril) 7.5 mg HS PRN PO 07/01/17 09:15 Pharmacy Profile Note 0 ml @ 0 mls/hr UNSCH OTHER 07/02/17 10:00 UNV (Lipitor) 20 mg HS PO 07/02/17 21:00 UNV (Coumadin) 4 mg DAILY PO 07/03/17 09:00 UNV (KCl) 20 meq DAILY PO 07/03/17 09:00 UNV Vital Signs / I&O Vital Signs Date Time Temp Pulse Resp B/P (MAP) Pulse Ox O2 Delivery O2 Flow Rate FiO2 07/02/17 11:00 101 07/02/17 11:00 95 Room Air 07/02/17 11:00 98.1 100 18 88/62 (71) 95 07/02/17 10:00 97 07/02/17 09:00 107 07/02/17 08:00 102 07/02/17 07:00 94 Room Air 07/02/17 07:00 107 07/02/17 07:00 98.1 104 19 88/60 (69) 94 07/02/17 06:00 97 07/02/17 05:00 101 07/02/17 04:00 102 07/02/17 03:00 102 07/02/17 03:00 95 Room Air 07/02/17 03:00 97.7 104 18 91/63 (72) 95 07/02/17 02:00 100 07/02/17 01:00 102 07/02/17 00:00 100 07/01/17 23:10 94 Nasal Cannula 2.00 07/01/17 23:10 98.2 99 18 88/57 (67) 94 07/01/17 23:00 101 07/01/17 22:00 102 07/01/17 21:00 104 07/01/17 20:30 98.1 105 18 95/69 (78) 97 07/01/17 20:30 97 Nasal Cannula 2.00 07/01/17 20:00 106 07/01/17 19:00 106 07/01/17 18:00 109 07/01/17 17:00 106 07/01/17 16:00 99 07/01/17 15:00 98.2 102 20 88/60 (69) 96 07/01/17 15:00 106 07/01/17 15:00 98 Room Air 07/01/17 14:00 110 07/01/17 14:00 96 Nasal Cannula 1.00 07/01/17 13:00 103 07/01/17 12:00 98 I/O 07/01/17 07/01/17 07/01/17 07/02/17 07/02/17 07/02/17 07:00 15:00 23:00 07:00 15:00 23:00 Intake Total 720 ml 360 ml Output Total 1100 ml 200 ml 700 ml 900 ml Balance -1100 ml -200 ml 20 ml -540 ml Intake Oral 720 ml 360 ml Output Urine Total 1100 ml 200 ml 700 ml 900 ml # Voids 2 # Bowel Movements 1 0 Physical Exam GENERAL: Well developed, well nourished. No acute distress. HEENT: Jugular venous pressure is upper nl CHEST: Lungs decreased at bases. Less labored respiratory effort. CARDIAC: Regular rate and rhythm with S3; echo pending ABDOMEN: Soft, nontender, no hepatosplenomegaly. Bowel sounds present. EXTREMITIES: No clubbing, cyanosis, or edema. Laboratory Laboratory Tests Test 07/02/17 05:04 Blood Urea Nitrogen 14 MG/DL Creatinine 1.19 MG/DL Random Glucose 134 MG/DL Calcium Level 8.7 MG/DL Magnesium Level 2.1 MG/DL Sodium Level 138 MEQ/L Potassium Level 4.6 MEQ/L Chloride Level 106 MEQ/L Carbon Dioxide Level 21.9 MEQ/L Anion Gap 10 MEQ/L Estimat Glomerular Filtration Rate 59 ML/MIN Assessment and Plan Problem List: (1) Acute systolic CHF (congestive heart failure), NYHA class 4 ICD Codes: I50.21 - Acute systolic (congestive) heart failure Plan: Probable discharge in AM (2) Ischemic cardiomyopathy ICD Codes: I25.5 - Ischemic cardiomyopathy Status: Acute Assessment and Plan Order for Shane Cristobal MD Jul 02, 2017 11:32
--- NOTE | 2017-07-02 11:42 | HHI.PR ---
Addendum to Inpatient Note Addendum Reason: Additional Documentation Additional Information history of LV apical thrombus is why he is on warfarin. Shane Clayton MD Jul 02, 2017 11:42
[2017-07-02 13:21] LABS: INTERNATIONAL NORMALIZED RATIO 1.4 RATIO; PROTHROMBIN TIME - PATIENT 15.2 SEC (9.8-11.6)
[2017-07-02] MEDS ORDERED: WARFARIN SOD 4 MG TAB PO SCH (16:00)
[2017-07-02] MEDS ORDERED: ATORVASTATIN 20 MG TAB PO SCH (21:00)
[2017-07-03] VITALS (18 sets, daily range): BP systolic 88–90; BP diastolic 53–59; PULSE 95–110; RESP 16; TEMP 98.2–98.3; O2SAT 93–99
[2017-07-03 06:20] LABS: MAGNESIUM 2.3 MG/DL (1.5-2.5); POTASSIUM 3.9 MEQ/L (3.5-5.1)
[2017-07-03 06:24] LABS: HDL CHOLESTEROL 43.4 MG/DL (40.0-60.0)
[2017-07-03 06:29] LABS: INTERNATIONAL NORMALIZED RATIO 1.3 RATIO
[2017-07-03] MEDS: SODIUM CHLORIDE 0.9% FLUSH 10 ML FLUSH IV FLUSH SCH (08:51)
[2017-07-03] MEDS: METOPROLOL SUCCINATE 25 MG EXTENDED RELEASE TAB PO SCH (08:52)
[2017-07-03] MEDS: VALSARTAN 40 MG TAB PO SCH (08:52)
[2017-07-03] MEDS: SPIRONOLACTONE 25 MG TAB PO SCH (08:53)
[2017-07-03] MEDS ORDERED: TORSEMIDE 20 MG TAB PO SCH (09:00)
[2017-07-03] MEDS ORDERED: POTASSIUM CHLORIDE 20 MEQ CONTROLLED RELEASE TAB PO SCH (09:00)
[2017-07-03] MEDS ORDERED: ATORVASTATIN 10 MG TAB PO SCH (09:00)
--- NOTE | 2017-07-03 09:57 | PD.CARD.PN ---
Subjective Subjective Remarks less SOB, no CP Objective Medications Current Medications Medications (Trade) Dose Ordered Sig/Nava Route Start Time Stop Time Status Last Admin (NS Flush) 2 ml UNSCH PRN IV FLUSH 06/30/17 17:30 (NS Flush) 2 ml BID IV FLUSH 06/30/17 21:00 07/03/17 08:51 (Zofran Inj) 4 mg Q6H PRN IVP 06/30/17 17:30 (Narcan Inj) 0.4 mg UNSCH PRN IV PUSH 06/30/17 17:30 (Milk Of Magnesia Liq) 30 ml Q12H PRN PO 06/30/17 17:30 (Senokot) 17.2 mg Q12H PRN PO 06/30/17 17:30 (Dulcolax Supp) 10 mg DAILY PRN RECTAL 06/30/17 17:30 (Lactulose Liq) 30 ml DAILY PRN PO 06/30/17 17:30 (Toprol Xl) 25 mg BID PO 06/30/17 21:00 07/03/17 08:52 (Diovan) 40 mg BID PO 06/30/17 21:00 07/03/17 08:52 (Aldactone) 25 mg DAILY PO 07/01/17 09:00 07/03/17 08:53 (Restoril) 7.5 mg HS PRN PO 07/01/17 09:15 Pharmacy Profile Note 0 ml @ 0 mls/hr UNSCH OTHER 07/02/17 10:00 (Lipitor) 20 mg HS PO 07/02/17 21:00 07/02/17 20:39 (Coumadin) 4 mg DAILY@1600 PO 07/02/17 16:00 07/02/17 16:14 (KCl) 20 meq DAILY PO 07/03/17 09:00 07/03/17 08:52 (Demadex) 20 mg DAILY PO 07/03/17 09:00 07/03/17 08:53 Vital Signs / I&O Vital Signs Date Time Temp Pulse Resp B/P (MAP) Pulse Ox O2 Delivery O2 Flow Rate FiO2 07/03/17 06:00 101 07/03/17 05:00 103 07/03/17 04:00 102 07/03/17 03:45 94 Room Air 07/03/17 03:45 98.3 103 16 89/59 (69) 94 07/03/17 03:00 101 07/03/17 02:00 103 07/03/17 01:00 103 07/03/17 00:00 103 07/02/17 23:20 94 Room Air 07/02/17 23:20 98.1 106 18 91/63 (72) 94 07/02/17 23:00 109 07/02/17 22:00 103 07/02/17 21:00 106 07/02/17 20:00 110 07/02/17 20:00 98.3 106 18 91/62 (72) 97 07/02/17 20:00 97 Room Air 07/02/17 19:00 115 07/02/17 18:00 112 07/02/17 17:01 107 07/02/17 16:00 107 07/02/17 15:00 93 Room Air 07/02/17 15:00 106 07/02/17 15:00 98.2 104 18 86/57 (67) 93 07/02/17 14:02 108 07/02/17 13:00 103 07/02/17 12:04 104 07/02/17 11:00 101 07/02/17 11:00 95 Room Air 07/02/17 11:00 98.1 100 18 88/62 (71) 95 07/02/17 10:00 97 I/O 07/02/17 07/02/17 07/02/17 07/03/17 07/03/17 07/03/17 07:00 15:00 23:00 07:00 15:00 23:00 Intake Total 360 ml 720 ml 100 ml Output Total 900 ml 600 ml 425 ml Balance -540 ml 120 ml -325 ml Intake Oral 360 ml 720 ml 100 ml Output Urine Total 900 ml 600 ml 425 ml # Bowel Movements 0 1 0 Physical Exam GENERAL: Well developed, well nourished. No acute distress. HEENT: no JVD CHEST: Lungs clear. CARDIAC: Regular rate and rhythm with S3; echo pending ABDOMEN: Soft, nontender, no hepatosplenomegaly. Bowel sounds present. EXTREMITIES: No clubbing, cyanosis, or edema. Laboratory Laboratory Tests Test 07/02/17 12:26 07/03/17 05:36 Prothrombin Time 15.2 SEC 14.0 SEC Prothromb Time International Ratio 1.4 RATIO 1.3 RATIO Blood Urea Nitrogen 17 MG/DL Creatinine 1.21 MG/DL Random Glucose 131 MG/DL Calcium Level 9.4 MG/DL Magnesium Level 2.3 MG/DL Sodium Level 140 MEQ/L Potassium Level 3.9 MEQ/L Chloride Level 104 MEQ/L Carbon Dioxide Level 26.0 MEQ/L Anion Gap 10 MEQ/L Estimat Glomerular Filtration Rate 58 ML/MIN Triglycerides Level 112 MG/DL Cholesterol Level 125 MG/DL LDL Cholesterol 59 MG/DL HDL Cholesterol 43.4 MG/DL Cholesterol/HDL Ratio 2.88 RATIO Assessment and Plan Problem List: (1) Acute systolic CHF (congestive heart failure), NYHA class 4 ICD Codes: I50.21 - Acute systolic (congestive) heart failure Plan: Much improved (2) Ischemic cardiomyopathy ICD Codes: I25.5 - Ischemic cardiomyopathy Status: Acute Plan: EF < 20% (3) Left ventricular thrombus following [place] ICD Codes: I21.29 - ST elevation (STEMI) myocardial infarction involving other sites; I23.6 - Thrombosis of atrium, auricular appendage, and ventricle as current complications following acute myocardial infarction Plan: No clot on most recent echo. Continue warfarin (4) Abnormal ECG ICD Codes: R94.31 - Abnormal electrocardiogram [ECG] [EKG] Plan: Extremely low voltage causing [employer] sensing problems. If these get worked out today OK to DC home. OV with me 1 week Shane Clayton MD Jul 03, 2017 09:57
--- NOTE | 2017-07-03 10:14 | HHI.PR ---
Subjective Remarks Pt feels ok, mild dry cough, no CP, SOB, nausea or vomiting. has life vest on discussed w Dr. Clayton, voltage very low, having difficulty getting the life vest to picker machine operator voltage, awaiting tech to come and assist. Objective Vitals Vital Signs Date Time Temp Pulse Resp B/P (MAP) Pulse Ox O2 Delivery O2 Flow Rate FiO2 07/03/17 06:00 101 07/03/17 05:00 103 07/03/17 04:00 102 07/03/17 03:45 94 Room Air 07/03/17 03:45 98.3 103 16 89/59 (69) 94 07/03/17 03:00 101 07/03/17 02:00 103 07/03/17 01:00 103 07/03/17 00:00 103 07/02/17 23:20 94 Room Air 07/02/17 23:20 98.1 106 18 91/63 (72) 94 07/02/17 23:00 109 07/02/17 22:00 103 07/02/17 21:00 106 07/02/17 20:00 110 07/02/17 20:00 98.3 106 18 91/62 (72) 97 07/02/17 20:00 97 Room Air 07/02/17 19:00 115 07/02/17 18:00 112 07/02/17 17:01 107 07/02/17 16:00 107 07/02/17 15:00 93 Room Air 07/02/17 15:00 106 07/02/17 15:00 98.2 104 18 86/57 (67) 93 07/02/17 14:02 108 07/02/17 13:00 103 07/02/17 12:04 104 07/02/17 11:00 101 07/02/17 11:00 95 Room Air 07/02/17 11:00 98.1 100 18 88/62 (71) 95 07/02/17 10:00 97 I/O 07/02/17 07/02/17 07/02/17 07/03/17 07/03/17 07/03/17 07:00 15:00 23:00 07:00 15:00 23:00 Intake Total 360 ml 720 ml 100 ml Output Total 900 ml 600 ml 425 ml Balance -540 ml 120 ml -325 ml Intake Oral 360 ml 720 ml 100 ml Output Urine Total 900 ml 600 ml 425 ml # Bowel Movements 0 1 0 Result Diagram: 07/01/17 0610 07/03/17 0536 Imaging Last Impressions Chest X-Ray 06/30/17 1535 Signed Impressions: Service Date/Time: Friday, June 30, 2017 15:46 - CONCLUSION: 1. Postsurgical features. 2. Minimal bibasilar airspace disease, presumably atelectasis. Differential considerations include aspiration and less likely pneumonia in the appropriate clinical setting. 3. Probable trace bilateral pleural effusions. Felice Galvan MD Objective Remarks GENERAL APPEARANCE: This 76 year old patient laying down SKIN: Skin is warm and dry without swelling. HEENT: Airway is patent. Extra ocular motions are intact. LUNGS: Equal and bilateral breath sounds without wheezes HEART: regular rate and rhythm without murmur ABDOMEN: Soft, non tender, no guarding or rebound. EXTREMITIES: no edema. NEUROLOGIC: awake and alert. moves all extremities w no difficulty. A/P Assessment and Plan 76-year-old male without any significant past medical history until he suffered an NM while in [place] in April of this year and underwent CABG4 with complaints of progressive shortness of breath sent over from the office by his life educator Dr. Clayton for decompensated congestive heart failure and suspected ischemic cardiomyopathy. CAD s/p recent NM and CABG x 4 04/2017 on Coumadin, due to history of LV apical thrombus CHF, decompensated Suspected ischemic cardiomyopathy - s/p Lasix in the ED and now on lasix 40mg IV BID. - Dr. Clayton following. life vest ordered but having difficulty picking the voltage. Awaiting for Intelleflex to come in. - Continue Valsartan 40mg BID, torsemide 20mg po daily, and Spironolactone 25mg daily - 2D echo shows EF of 20% and mod to severe mitral valve regurg. - BNP 505 - Heart healthy diet with low salt <2g/day and fluid restrictions at 1500ml/ day - continuous cardiac monitoring - Supplemental oxygen - monitor PT/INR. pharmacy consult placed for assistance w coumadin management. INR 1.3 today - PT eval/tx Recent pneumonia following CABG - CXR as stated above. asymptomatic. Patient is afebrile. White count is normal. - monitor respiratory status - IS at bedside, encourage use DVT proph:. Warfarin. Patient was placed on warfarin after CABG for LV apical thrombus, however pt has trouble keeping his INR therapeutic. I discussed w Dr. Mullen and he would like pt to switch to eliquis 5mg po BID. I will give him a dose now. Discussed w pharmacy and ok to give one dose now and he can take next dose at 9pm. Discharge Planning once lifevest has been set up and working properly pt can be discharged home. Melissa Thakur MD Jul 03, 2017 10:14
[2017-07-03] MEDS ORDERED: SPIR25 PO (10:19)
[2017-07-03] MEDS ORDERED: METO25TA6 PO (10:19)
[2017-07-03] MEDS ORDERED: APIX5TAB PO (10:19)
[2017-07-03] MEDS ORDERED: DIOV40TA PO (10:19)
--- NOTE | 2017-07-03 10:20 | HHI.DCPOC ---
Discharge Care Plan Goals to Promote Your Health * To prevent worsening of your condition and complications take all medications as prescribed * To maintain your health at the optimal level follow all discharge instructions Directions to Meet Your Goals Take your medications as prescribed Follow your dietary instruction Follow activity as directed Keep your appointments as scheduled Take your immunizations and boosters as scheduled If your symptoms worsen call your PCP, if no PCP go to Urgent Care Center or Emergency Room Smoking is Dangerous to Your Health. Avoid second hand smoke Call the 24-hour hour crisis hotline for domestic abuse at Brenda Escobar MD Jul 03, 2017 10:20
[2017-07-03] MEDS ORDERED: TORS1TAB12 PO (10:50)
[2017-07-03] MEDS ORDERED: POTA20TA5 PO (10:50)
[2017-07-03] MEDS ORDERED: APIXABAN 5 MG TABLET PO ONE (11:15)
--- NOTE | 2017-07-03 15:34 | HHI.DS ---
Discharge Summary Admission Date Jul 01, 2017 at 16:11 Discharge Date: Jul 03, 2017 Admitting Diagnosis ischemic cardiomyopathy, congestive heart failure (1) Acute systolic CHF (congestive heart failure), NYHA class 4 ICD Code: I50.21 - Acute systolic (congestive) heart failure Procedures none Brief History - From Admission Written by Joann Stokes, acting as scribe for Dr. Cobian on 06/30/17 at 18: 03. This is an active 76-year-old male without any significant past medical history until he suffered an HI while in [place] in April of this year and underwent CABG4. Patient's postoperative course was complicated by pneumonia. Patient states he spent about 4 weeks in [place] before returning back home to [facility] where he resides. Patient states that he's been "going downhill " for the past several weeks with increasing difficulty with shortness of breath. He states he is unable to lie flat due to increased shortness of breath and as as a result has not been getting much sleep. He states that since the surgery he's had cough and chest pain associated with the cough only but reports both have improved in the past week. He endorses a poor appetite and occasional difficulty with swallowing. He states he has a chalky taste in his mouth. He denies any lower extremity swelling or significant weight gain. He denies any complaints of fever or chills. He denies any weakness or vision changes. He denies any nausea vomiting or abdominal pain. He denies any issues with diarrhea constipation or urinary complaints. Patient reports he has usually walk about a mile a day but last night he was only able to walk about 100 feet before having to stop due to severe dyspnea and wheezing. Patient had his initial cardiology visit with Dr. Clayton today who sent the patient directly over from his office for suspected ischemic cardiomyopathy and decompensated congestive heart failure. CBC/BMP: 07/01/17 0610 07/03/17 0536 Significant Findings Laboratory Tests Test 06/30/17 15:45 07/01/17 06:10 07/02/17 05:04 07/02/17 12:26 Red Blood Count 3.96 MIL/MM3 (4.50-5.90) 3.90 MIL/MM3 (4.50-5.90) Hemoglobin 11.4 GM/DL (13.0-17.0) 11.3 GM/DL (13.0-17.0) Hematocrit 35.5 % (39.0-51.0) 34.5 % (39.0-51.0) Monocytes (%) (Auto) 10.6 % (0.0-8.0) 9.1 % (0.0-8.0) Monocytes # (Auto) 1.1 TH/MM3 (0-0.9) Prothrombin Time 24.0 SEC (9.8-11.6) 15.2 SEC (9.8-11.6) Activated Partial Thromboplast Time 33.1 SEC (24.3-30.1) Chloride Level 108 MEQ/L (98-107) Estimat Glomerular Filtration Rate 63 ML/MIN (>89) 61 ML/MIN (>89) 59 ML/MIN (>89) B-Type Natriuretic Peptide 505 PG/ML (0-100) Random Glucose 127 MG/DL (74-106) 134 MG/DL (74-106) Albumin 3.3 GM/DL (3.4-5.0) Test 07/03/17 05:36 Prothrombin Time 14.0 SEC (9.8-11.6) Random Glucose 131 MG/DL (74-106) Estimat Glomerular Filtration Rate 58 ML/MIN (>89) Imaging Last Impressions Chest X-Ray 06/30/17 1535 Signed Impressions: Service Date/Time: Friday, June 30, 2017 15:46 - CONCLUSION: 1. Postsurgical features. 2. Minimal bibasilar airspace disease, presumably atelectasis. Differential considerations include aspiration and less likely pneumonia in the appropriate clinical setting. 3. Probable trace bilateral pleural effusions. Felice Galvan MD PE at Discharge GENERAL APPEARANCE: This 76 year old patient laying down SKIN: Skin is warm and dry without swelling. HEENT: Airway is patent. Extra ocular motions are intact. LUNGS: Equal and bilateral breath sounds without wheezes HEART: regular rate and rhythm without murmur ABDOMEN: Soft, non tender, no guarding or rebound. EXTREMITIES: no edema. NEUROLOGIC: awake and alert. moves all extremities w no difficulty. Hospital Course CAD s/p recent HI and CABG x 4 04/2017 on Coumadin, due to history of LV apical thrombus CHF, decompensated Suspected ischemic cardiomyopathy - s/p Lasix in the ED, s/p lasix 40mg IV BID now on torsemide 20mg po daily w 20meq KCl. - Dr. Clayton following. life vest ordered but having difficulty picking the voltage. d/c once lifevest set up completed. - Continue Valsartan , Spironolactone 25mg daily - 2D echo shows EF of 20% and mod to severe mitral valve regurg. - Heart healthy diet with low salt <2g/day and fluid restrictions at 1500ml/ day Patient was placed on warfarin after CABG for LV apical thrombus, however pt has trouble keeping his INR therapeutic. I discussed w Dr. Mullen and he would like pt to switch to eliquis 5mg po BID. Pt Condition on Discharge: Stable Discharge Disposition: Discharge Home Discharge Time: > 30 minutes Discharge Instructions DIET: Follow Instructions for: Heart Healthy Diet Fluid Restrictions: 1500ml/day Activities you can perform: Regular-No Restrictions Follow up Referrals: Cardiology with Shane Clayton MD PCP Follow-up - 1 Week New Medications: Apixaban (Eliquis) 5 Mg Tab 5 MG PO BID for anticoagulation, #60 TAB Metoprolol Succinate ER 24 HR (Metoprolol Succinate ER 24 HR) 25 Mg Tab 25 MG PO BID for Blood Pressure Management, #30 TAB Potassium Chloride Microencaps (Potassium Chloride Microencaps) 20 Meq Tab 20 MEQ PO DAILY, #30 TAB Spironolactone (Aldactone) 25 Mg Tab 25 MG PO DAILY for diuresis, #30 TAB Torsemide (Demadex) 20 Mg Tab 20 MG PO DAILY, #30 TAB Valsartan (Diovan) 40 Mg Tab 40 MG PO BID for Blood Pressure Management, #60 TAB Continued Medications: Atorvastatin (Lipitor) 20 Mg Tab 20 MG PO HS for Cholesterol Management, #30 TAB 0 Refills Metformin (Metformin) 500 Mg Tab 500 MG PO BIDPC for Blood Sugar Management, #60 TAB 0 Refills Triamcinolone Acetonide Nasal Rogers (Nasacort Allergy 24Hr Nasal Rogers) 55 Mcg Spr 55 MCG EACH NARE DAILY for Allergy Management, BOTTLE 0 Refills Discontinued Medications: Warfarin (Warfarin) 4 Mg Tab 4 MG PO DAILY for Blood Clot Prevention, #30 TAB 0 Refills Melissa Thakur MD Jul 03, 2017 15:34
[2017-07-03] MEDS ORDERED: APIXABAN 5 MG TABLET PO SCH (21:00)
== END 2017-07-03 15:51 | disposition home or self-care (01) | DRG 292 ==
LOC: NEPE 14:57 → NEDA 17:24 → INTOOBSV 17:24 → NEDH 21:44 → HCPC 07-01 08:00 → OBSVTOIN 07-01 16:11
PROVIDERS: ADMIT Hospitalist; ATTEND Hospitalist
DX: I11.0 Hypertensive heart disease with heart failure (principal); B37.0 Candidal stomatitis; I34.0 Nonrheumatic mitral (valve) insufficiency; I25.5 Ischemic cardiomyopathy; I25.10 Atherosclerotic heart disease of native coronary artery without angina pectoris; Z95.1 Presence of aortocoronary bypass graft; I50.21 Acute systolic (congestive) heart failure; I25.2 Old myocardial infarction; I51.3 Intracardiac thrombosis, not elsewhere classified
CPT/HCPCS: 71010; 80048; 80053; 80061; 82550; 83735; 83880; 84484; 85025; 85610; 85730; 93005; 93306; 96374; J1940

== ENCOUNTER 2017-07-21 06:27 | Day surgery (SDC) | payer OTHER ==
[~2017-07-21] VITALS: Ht 177.8 cm; Wt 78.8 kg
[~2017-07-21 06:27] MED LIST: APIX5TAB PO; DIOV40TA PO; LIPI20TA PO; METF500T PO; METO1TAB42 PO; POTA20TA5 PO; SPIR25 PO; TORS1TAB12 PO; TRIA1SPR5 EACH NARE
[2017-07-21] MEDS ORDERED: IOHEXOL 350 MG/ML 50 ML BTL (for Cath Lab) OTHER ONE (06:28)
[2017-07-21] MEDS ORDERED: IOHEXOL 350 MG/ML 100 ML BTL (for Cath Lab) OTHER ONE (06:28)
[2017-07-21] MEDS ORDERED: NS 1000P @30 MLS/HR (KVO) IV SCH (06:45)
[2017-07-21 06:56] VITALS: BP 89/63; PULSE 90; RESP 17; TEMP 98.1; O2SAT 94
[2017-07-21] MEDS ORDERED: SYMB160A INH (06:58)
[2017-07-21] MEDS ORDERED: VENTAER INH ×2 (06:58→11:27)
[2017-07-21] MEDS ORDERED: LIPI40TA PO (06:58)
[2017-07-21 07:05] LABS: AUTOMATED NEUTROPHIL # 5.8 TH/MM3 (1.8-7.7); BASOPHIL % 0.5 % (0.0-2.0); EOSINOPHIL # 0.4 TH/MM3 (0-0.4); HEMATOCRIT 34.5 % (39.0-51.0); HEMO FLAGS DIFF FINAL; LYMPHOCYTE # 2.4 TH/MM3 (1.0-4.8); MEAN CELL VOLUME 86.4 FL (80.0-100.0); MEAN CORPUSCULAR HEMOGLOBIN 28.2 PG (27.0-34.0); MEAN CORPUSCULAR HGB CONC 32.6 % (32.0-36.0); MONO % 9.9 % (0.0-8.0); NEUT % 60.6 % (16.0-70.0); PLATELET COUNT 307 TH/MM3 (150-450); RED CELL DISTRIBUTION WIDTH 15.8 % (11.6-17.2); WHITE BLOOD COUNT 9.5 TH/MM3 (4.0-11.0)
[2017-07-21] MEDS ORDERED: TORS20TA PO (07:09)
[2017-07-21 07:18] LABS: APTT (PATIENT) 27.1 SEC (24.3-30.1); PROTHROMBIN TIME - PATIENT 10.9 SEC (9.8-11.6)
[2017-07-21 07:21] LABS: BICARBONATE 23.4 MEQ/L (21.0-32.0); POTASSIUM 4.1 MEQ/L (3.5-5.1)
[2017-07-21] MEDS ORDERED: MIDAZOLAM HCL 2 MG/2 ML VIAL ONE (08:21)
[2017-07-21] MEDS ORDERED: HEPARIN-NS/PF INJ 1,000 ML ONE (08:21)
[2017-07-21] MEDS ORDERED: MORPHINE SULFATE 8 MG/ML INJ ONE (09:11)
--- NOTE | 2017-07-21 09:36 | CATHPROC ---
[employer] HIS Report Study Information Study Number Admission Scheduled Start Study Start [id number] Jul 21 2017 6:27AM 07/21/2017 Jul 21 2017 8:13AM [place] Service Cardiac Catheterization Admit Source Facility Department Other [facility] - Quotation Checker Physician and Clinical Staff Initial Shane Beyer Booking Agent Rekha Cotto BSN Other cathlab, cathlab Recorder Albino Arredondo RCIS(BS) Gail Hernandez RCIS TECH2 Procedures Performed Procedure Location (Site) Vessel Name Angiogram LV LV Ventricle Coronary Angiograms LCA Left Coronary Coronary Angiograms RCA Right Coronary Coronary Angiograms SVG-DIAG Left Coronary Coronary Angiograms Gft. Stump 1 SVG Graft Coronary Angiograms Gft. Stump 2 SVG Graft L Heart Cath Equipment Time Senior Bi Developer Description Size Mfg Part Number Used/Scraped TRANSDUCER, AMANDA [id number] 08:14 CHOUDHARY JIANG * Used W/STOCKCOCK *[id number] *[id number] *[id number] *[id number] [id number] *[id number] PIGTAIL ANG. 145 INFINITI [id number] CATHETER *[id number] 08:14 Recommend INDUST[employer]ES PACK, CCL CUSTOM * Used *[id number] 08:14 Recommend PACER PEN, SKIN DUAL W/ RULER * Used *[id number] 08:14 [employer] SHEATH, FR6.5 PRELUDE 11CM FR 6.5 038ACT Used *[id number] 08:14 [employer] MEDICAL WIRE, 3MMJ .035 180CM 180CM Used *[id number] 08:14 NAMIC MANIFOLD, 4 PORT * Used *[id number] 08:14 [employer]COMED OMNIPAQUE, 350 MG, 100ML 100ML [id number] Used 08:47 NYCOMED OMNIPAQUE, 350 MG, 50ML 50ML [id number] Used [id number] 08:14 [employer] BLANKET,WARM AIR CCL * Used *[id number] History: Current Medications Medication Dosage/Unit Route Frequency Last Date/Time Taken Statins (any) Beta Shanta History: Allergies Allergy Reaction aspirin RESP DISTRESS ragweed pollen History: Risk Factors Family History of Hypertension Dyslipidemia Previous VT Previous Heart Failure Premature CAD No Yes No Yes Yes Prior Valve Prior PCI Prior PCIDate Prior CABG Prior CABGDate Surgery No Yes 04/08/2017 Yes 04/08/2017 Cerebrovascular Peripheral Artery Chronic Lung On Dialysis Diabetes Diabetes Therapy Disease Disease Disease No No No No Yes Oral History: CV Disease Selection Items Known CAD History: Stress Tests Stress or Imaging Studies Performed No History: VT/CV Data Previous Cath Date Previous CABG Date 04/08/2017 04/08/2017 History: Other Current Smoker Method Quit Packs a Day Years Used Pack Years No Cigarettes 5 Years Ago 1 50 50 Labs Hgb (g/dl) Hct (%) WBC (l/cumm) Platelets (thousands) 11.60-17.00 35.00-51.00 4.00-11.00 150.00-450.00 11.3 34.5 9.5 307 Glucose (mg/dl) BUN (mg/dl) Creatinine (mg/dl) BUN:Creatinine (1:x) 74.00-106.00 7.00-18.00 0.50-1.30 10.00-20.00 129 14 1.2 11.7 Na (meq/l) K (meq/l) 136.00-145.00 3.50-5.10 138 4.1 INR (PTT:PT) 0.90-1.10 1 CPK-MB (ng/ML) 0.50-3.60 Not Drawn Medication Medication Total Dose (Bolus/Oral) Medication Total Dosage/Unit 1% XYLOCAINE 20 mL MORPHINE 2 mg VERSED 1 mg Medications (Bolus/Oral) Medication Time Given Dosage/Unit Administered By Reason VERSED 07/21/2017 8:41:41 AM 1 mg Rekha Cotto 1 mg VERSED given in lab by Rekha Cotto BSN in Left Forearm via Peripheral IV. Ordered by Shane Rouse. 1% XYLOCAINE 07/21/2017 8:41:53 AM 20 mL Shane Clayton 20 mL 1% XYLOCAINE given in lab by Shane Clayton in Right Groin via Subcutaneous. MORPHINE 07/21/2017 9:13:56 AM 2 mg Shane Clayton 2 mg MORPHINE given in lab by Shane Clayton via Peripheral IV. Medication (Drip) Medication Time Given Dosage/Unit Concentration/Unit Diluent (ml) Solution IV Solutions 07/21/2017 8:14:53 AM 0 mL (IV) 500 NaCl .9 Patient arrived on IV Solutions given by cathlab, cathlab in Left Forearm via Peripheral IV. Pump/Dri p Flow = 20 ml/hr using NaCl .9. Ordered by Shane Clayton. Initial Case Assessment Cardiovascular HR Rhythm NIBP Chest Pain 96 nsr 90/59 0 Edema Present Skin color Skin None Normal Warm Dry Circulatory - Right Pulses Dorsalis Pedis Femoral 2 3 Scale (0,1,2,3,4,d) Circulatory - Left Pulses Dorsalis Pedis Femoral 3 3 Scale (0,1,2,3,4,d) Neurological State Oriented to time-place- Alert Moves all extremities person Respiration - General Respiration Rate SpO2 (%) (B/min) 15 95 Final Case Assessment Cardiovascular HR Rhythm NIBP Chest Pain 99 nsr 86/59 0 Edema Present Skin color Skin None Normal Warm Dry Circulatory - Right Pulses Dorsalis Pedis Femoral 2 3 Scale (0,1,2,3,4,d) Circulatory - Left Pulses Dorsalis Pedis Femoral 3 3 Scale (0,1,2,3,4,d) Neurological State Oriented to time-place- Alert Moves all extremities person Respiration - General Respiration Rate SpO2 (%) (B/min) 15 95 Chronological Log Time Study Chronological Log 8:14:44 Patient arrived via Bed. 8:14:45 Patient Name, D.O.B, / Armband Verified By R.N. 8:14:45 Consent signed by the physician and the patient and verified by the Quotation Checker staff. 8:14:46 Pre-op and post- op instructions given; patient acknowledges understanding of instructions. 8:14:46 Verbal Stimulation=2 Physical Stimulation=2 Airway=2 Respiration=2 TOTAL=8. (0=absent, 1=li mited, 2=present) 8:14:47 Presedation assessment performed by Quotation Checker RN. 8:14:48 Immediate Presedation assesment performed by physician. 8:14:49 Patient has been NPO for More than 6Hrs. 8:14:49 Skin Breakdown- none per patient 8:14:51 Patient Warmer Placed on the Table. 8:14:52 Jb Prominences Protected 8:14:53 A # 20 IV was noted in the Forearm (left). Grade = 0 Patient arrived on IV Solutions given by cathlab, cathlab in Left Forearm via Peripheral IV. Pu mp/Drip Flow = 20 ml/hr 8:14:53 using NaCl .9. Ordered by Shane Clayton. 8:14:54 History and physical on the chart or being dictated. Vitals capture started with the following parameters, Patient=Adult, Interval=5 min, Initial Pr kmjlgu=307 mmHg, 8:23:26 Deflation Rate=5 mmHg, Cuff placed on Left Arm Assessment: Initial Case, HR=96 BPM, Rhythm=nsr, NIBP=90/59 mmhg, Chest Pain=0, Edema=None, [place] r=Normal, Skin = Warm, Dry Right Pulses: Emiliano Ped=2, Femoral=3 8:23:28 Left Pulses: Emiliano Ped=3, Femoral=3 Neurological: State=Alert, Ox3, TORRES Respiration: Resp=15 B/min, SpO2=95 % 8:24:02 HR=96 bpm, NIBP=90/59 mmhg, SpO2=96.0 %, Resp=16 B/min, Pain=0, Jeffery=10, Lopez=2 8:24:58 Reference ECG taken 8:25:26 Bilateral groins prepped with 2% chlorhexidine, and draped after a 3 minute waiting time. 8:28:55 HR=69 bpm, NIBP=98/71 mmhg, SpO2=95.0 %, Resp=16 B/min, Pain=0, Jeffery=10, Lopez=2 8:32:38 MD arrived. 8:34:00 HR=96 bpm, NIBP=92/60 mmhg, SpO2=95.0 %, Resp=19 B/min, Pain=0, Jeffery=10, Lopez=2 8:34:46 Contrast Scanned 8:34:47 Immediate Presedation assesment performed by physician. 8:35:18 Pressure channel 1 zeroed. 8:38:57 HR=97 bpm, NIBP=88/69 mmhg, SpO2=96.0 %, Resp=16 B/min, Pain=0, Jeffery=10, Lopez=2 Time Out. Correct patient, correct procedure, correct physician, power injector loaded with cont rast with surgical team 8:40:20 present. Time Out Concurred by MD and individual staff in procedure. 8:40:33 Case Start 8:40:35 Verbal Stimulation=2 Physical Stimulation=2 Airway=2 Respiration=2 TOTAL=8. (0=absent, 1=larose ited, 2=present) 8:41:41 1 mg VERSED given in lab by Rekha Cotto BSN in Left Forearm via Peripheral IV. Orde red by hSane Clayton. 8:41:53 20 mL 1% XYLOCAINE given in lab by Shane Clayton in Right Groin via Subcutaneous. 8:43:52 Access site was Right Femoral Artery. 8:43:56 HR=99 bpm, NIBP=87/65 mmhg, SpO2=95.0 %, Resp=15 B/min, Pain=0, Jeffery=10, Lopez=2 8:44:30 A SHEATH, FR6.5 PRELUDE 11CM FR 6.5 was advanced into the Fem Art (right) using the Percutan eous technique. A PIGTAIL ANG. 145 INFINITI CATHETER FR 6 was advanced over a wire. OMNIPAQUE, 350 MG, 100ML 100 ML was 8:46:08 used for injections. Recorded Pressure: LV, HR=98, Condition=Condition 1 8:47:13 (Left Ventricle) LV 80/12/26 8:47:21 The LV was injected at 10 cc/sec for a total of 30. OMNIPAQUE, 350 MG, 50ML 50ML used. Recorded Pressure: LV, Ao, XC=667, Condition=Condition 1 8:48:44 (Left Ventricle) LV 79/9/24, (Aorta) Ao 76/48/60 Recorded Pressure: Ao, HR=98, Condition=Condition 1 8:48:55 (Aorta) Ao 78/50/62 8:48:57 HR=97 bpm, NIBP=82/58 mmhg, SpO2=95.0 %, Resp=13 B/min, Pain=0, Jeffery=10, Lopez=2 8:49:07 Catheter was removed A JL 5.0 INFINITI CATHETER FR 6 was advanced over a wire. OMNIPAQUE, 350 MG, 100ML 100ML was use d for 8:49:54 injections. 8:51:53 Catheter was removed A JL 4.5 INFINITI CATHETER FR 6 was advanced over a wire. OMNIPAQUE, 350 MG, 100ML 100ML was use d for 8:51:57 injections. 8:53:26 The LCA was injected and visualized at various angles. OMNIPAQUE, 350 MG, 100ML 100ML used. 8:53:58 HR=39 bpm, NIBP=81/54 mmhg, SpO2=93.0 %, Resp=16 B/min, Pain=0, Jeffery=10, Lopez=2 8:56:07 Catheter was removed A JR 4.0 INFINITI CATHETER FR 6 was advanced over a wire. OMNIPAQUE, 350 MG, 100ML 100ML was use d for 8:56:07 injections. 8:58:57 HR=79 bpm, NIBP=80/58 mmhg, SpO2=94.0 %, Resp=18 B/min, Pain=0, Jeffery=10, Lopez=2 8:59:58 The RCA was injected and visualized at various angles. OMNIPAQUE, 350 MG, 100ML 100ML used. 9:00:05 The Gft. Stump 1 was injected and visualized at various angles. OMNIPAQUE, 350 MG, 100ML 100 ML used. 9:00:40 The SVG-DIAG (Y GRAFT TO DIAG 1 and 2) was injected and visualized at various angles. contra st used. 9:03:56 HR=98 bpm, NIBP=85/67 mmhg, SpO2=93.0 %, Resp=15 B/min, Pain=0, Jeffery=10, Lopez=2 9:05:17 The Gft. Stump 2 was injected and visualized at various angles. OMNIPAQUE, 350 MG, 100ML 100 ML used. 9:07:29 Catheter was removed A 3DRC INFINITI CATHETER FR 6 was advanced over a wire. OMNIPAQUE, 350 MG, 100ML 100ML was used for 9:07:30 injections. 9:08:59 HR=96 bpm, NIBP=86/61 mmhg, SpO2=95.0 %, Resp=15 B/min, Pain=0, Jeffery=10, Lopez=2 Recorded Pressure: Ao, HR=64, Condition=Condition 1 9:12:31 (Aorta) Ao 85/50/63 9:13:56 2 mg MORPHINE given in lab by Shane Clayton via Peripheral IV. 9:13:58 HR=33 bpm, NIBP=96/72 mmhg, SpO2=93.0 %, Resp=21 B/min, Pain=0, Jeffery=10, Lopez=2 9:14:39 Catheter was removed and flushed. A 3DRC INFINITI CATHETER FR 6 was advanced over a wire. OMNIPAQUE, 350 MG, 100ML 100ML was used for 9:14:41 injections. 9:16:46 The RCA was injected and visualized at various angles. OMNIPAQUE, 350 MG, 100ML 100ML used. 9:19:04 HR=99 bpm, NIBP=86/59 mmhg, SpO2=93.0 %, Resp=19 B/min, Pain=0, Jeffery=10, Lopez=2 9:20:46 Catheter was removed 9:21:48 Case End Assessment: Final Case, HR=99 BPM, Rhythm=nsr, NIBP=86/59 mmhg, Chest Pain=0, Edema=None, Color= Normal, Skin = Warm, Dry Right Pulses: Emiliano Ped=2, Femoral=3 9:22:23 Left Pulses: Emiliano Ped=3, Femoral=3 Neurological: State=Alert, Ox3, TORRES Respiration: Resp=15 B/min, SpO2=95 % 9:22:37 Sheath(s) left in place, will be removed in Holding Area 9:22:39 Sterile dressing applied to site 9:22:40 No case complications noted. 9:22:40 Cine recording checked. 9:22:42 Bedside Report will be given. 9:22:43 Contrast Scanned 9:22:44 Verbal Stimulation=2 Physical Stimulation=22 Airway=2 Respiration=2 TOTAL=8. (0=absent, 1=li mited, 2=present) 9:22:54 A Left Heart Cath was performed. 9:24:03 HR=47 bpm, NIBP=80/52 mmhg, SpO2=93.0 %, Resp=15 B/min, Pain=0, Jeffery=10, Lopez=2 9:26:25 Patient moved to stretcher 9:26:27 Vitals capture stopped. End Study - Contrast Media Used In Study Contrast Total Opened (mL) Total Used (mL) Total Wasted (mL) Omnipaque 130 130 0 End Study - Maximum Contrast Load Max Contrast Load (mL) 328.4 End Study - Radiation Exposure Fluoro Time (minutes) 9.1 End Study - Patient Disposition Complications Transferred To Interventional Outcome No Quotation Checker Holding No attempt made
[2017-07-21] MEDS ORDERED: SODIUM CHLOR 0.9% 1000 ML INJ 1,000 ML IV SCH (09:42)
[2017-07-21] MEDS ORDERED: ONDANSETRON HCL 4 MG/2 ML VIAL IV PUSH PRN (09:45)
[2017-07-21] MEDS ORDERED: BACITRACIN OINT 0.9 GM PKT TOP ONE (09:45)
[2017-07-21] MEDS ORDERED: MISC INFORMATION XX ONE (09:45)
[2017-07-21] MEDS ORDERED: SODIUM CHLOR 0.9% 250 ML INJ 250 ML IV PRN (09:45)
[2017-07-21] MEDS ORDERED: SODIUM CHLORIDE 0.9% FLUSH 10 ML FLUSH IV FLUSH PRN (09:45)
[2017-07-21] MEDS ORDERED: ISOS60TA PO (11:16)
[2017-07-21] MEDS ORDERED: ASPI-516 CHEW (11:16)
[2017-07-21] MEDS ORDERED: OMEP20TA93 PO (11:16)
[2017-07-21] MEDS ORDERED: PERC5TAB12 PO (11:16)
[2017-07-21] MEDS ORDERED: TYLE325T PO (11:16)
[2017-07-21] MEDS ORDERED: LOSA100T PO (11:16)
[2017-07-21] MEDS ORDERED: BUPR300T PO (11:16)
[2017-07-21] MEDS ORDERED: METO1TAB9 PO (11:16)
[2017-07-21] MEDS ORDERED: FENO48TA PO (11:16)
[2017-07-21] MEDS ORDERED: AMLO5TAB2 PO (11:16)
[2017-07-21] MEDS ORDERED: PRAD150C PO (11:16)
[2017-07-21] MEDS ORDERED: CALC1CHW27 CHEW (11:16)
[2017-07-21] MEDS ORDERED: MULTTAB67 PO (11:16)
[2017-07-21] MEDS ORDERED: CARB25TA9 PO (11:16)
[2017-07-21] MEDS ORDERED: BUPR150T3 PO (11:16)
[2017-07-21] MEDS ORDERED: ATOR20TA15 PO (11:16)
[2017-07-21] MEDS ORDERED: FURO1TAB60 PO (11:16)
[2017-07-21] MEDS ORDERED: FOLI400T PO (11:16)
[2017-07-21] MEDS ORDERED: NITR1SUB3 SL (11:16)
[2017-07-21] MEDS ORDERED: OMEGCAP PO (11:16)
[2017-07-21] MEDS ORDERED: CLAR10CA3 PO (11:16)
[2017-07-21] MEDS ORDERED: APIX5TAB PO (11:26)
--- NOTE | 2017-07-21 11:26 | MA ---
cc: MARIANGEL DURHAM M.D., SAVITHA B. DO DATE: 07/21/2017 PROCEDURE PERFORMED 1. Left heart catheterization. 2. Left ventriculography. 3. Coronary angiography. 4. Bypass graft angiography. BRIEF HISTORY Naresh Beauchamp is a 76-year-old man who had an anterior NV last summer and had bypass surgery in [place]. He has class 3 CHF with severely impaired LV function. His EKG looks terrible with almost no R-waves. Thus we are performing a cardiac catheterization to see if he is adequately revascularized and to see what we might need to do further down the road for him if he deteriorates, i.e., possible left ventricular assist device at the [facility]. DESCRIPTION OF PROCEDURE The patient was brought to the cardiac garage laborer in a fasting state. Using 1% lidocaine for local anesthesia a 6.5 Divehi sheath was inserted in the right femoral artery. Left ventricular pressure was recorded using an angled pigtail catheter followed by left ventriculography and then a pullback. Coronary angiography was completed using a left 4.5 Gen for the left coronary artery and a 3-D RC for the right coronary artery. Angiography of the vein grafts was performed using a right Gen and the sheath is being pulled manually. There were no complications. FINDINGS HEMODYNAMICS Left ventricular pressure was 79/2 with an end-diastolic pressure of 24. Aortic pressure is 85/50 with a mean of 63. There is no gradient during pullback from the left ventricle to the aorta. 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 Estimated ejection fraction is 15%. There is 1-2+ mitral regurgitation. CORONARY ANGIOGRAPHY CORONARY ANGIOGRAPHY The left main coronary artery tapers distally to about a 60-70% stenosis. It appears similar in caliber to the ramus intermediate branch which has irregularities only. The LAD has 40% proximal irregularities and is totally occluded after the first septal railway station manager branch. The circumflex artery gives off a small first obtuse marginal branch which is occluded and then a second obtuse marginal branch and alternatively could be called a posterolateral branch which has competitive flow from the bypass grafts. The right coronary artery is a dominant vessel and has 20% mid irregularities and diffuse severely diseased PDA branch that does not need to be revascularized however. BYPASS GRAFTS There were two stumps identified off the aorta. There was one grafts patent which was a Y-graft. There was a large ectatic vein graft going to the second obtuse marginal branch. Coming off of this is a free internal mammary bypass to the LAD which is widely patent and fills the LAD antegrade and retrograde back to the mid LAD. CONCLUSIONS 1. Low arterial blood pressure. 2. Severely elevated left ventricular end-diastolic pressure. 3. Severely impaired LV function with estimated ejection fraction only 15%. 4. Multivessel disease with two patent bypass grafts, one to the circumflex, one to the LAD. 5. The ramus is not grafted but the distal left main and ramus are similar in caliber and I chose not to intervene on this particularly in view of the extremely low blood pressure and low ejection fraction with normal flow in the ramus branch. PLAN The patient will be referred to Dr. James for an AICD. This patient has marginal cardiac function to survive and he might be a candidate for a left ventricular assist device. He might need to be evaluated at the [facility] if the patient chooses to go this route. Mariangel Durham MD VEW/BT /9:42 AM /11:10 AM
--- NOTE | 2017-07-21 19:26 | EKG ---
Date Performed: 07/21/2017 Time Performed: 06:57:38 PTAGE: 76 years EKG: Sinus rhythm with PVC(s). Right axis deviation Anterolateral infarct - age undetermined Low QRS voltages in limb leads Abnormal ECG Since PREVIOUS TRACING , no significant change noted PREVIOUS TRACIN06/30/2017 16.00 DOCTOR: Anali Braswell Interpretating Date/Time 07/21/2017 19:24:59
[2017-07-21] MEDS ORDERED: SODIUM CHLORIDE 0.9% FLUSH 10 ML FLUSH IV FLUSH SCH (21:00)
== END 2017-07-21 16:11 | disposition home or self-care (01) ==
LOC: HDOC 06:27 → HDIC 06:27 → HDOC 16:11
PROVIDERS: ATTEND Internal Medicine Cardiovascular Disease
DX: I50.20 Unspecified systolic (congestive) heart failure (principal); I25.10 Atherosclerotic heart disease of native coronary artery without angina pectoris; I25.5 Ischemic cardiomyopathy; J90 Pleural effusion, not elsewhere classified; I25.2 Old myocardial infarction; E78.00 Pure hypercholesterolemia, unspecified; R06.02 Shortness of breath; E11.9 Type 2 diabetes mellitus without complications; K21.9 Gastro-esophageal reflux disease without esophagitis; Z79.84 Long term (current) use of oral hypoglycemic drugs; Z01.818 Encounter for other preprocedural examination
CPT/HCPCS: 80048; 85025; 85610; 85730; 93005; 93459; 99152; 99153; C1769; C1893; J1644; J2250; J2270; Q9967

== ENCOUNTER 2017-08-06 13:38 | Day surgery (SDC) | payer OTHER ==
[~2017-08-06] VITALS: Ht 179.1 cm; Wt 76.2 kg
[~2017-08-06 13:38] MED LIST changes: -LIPI20TA PO; +LIPI40TA PO; -TORS1TAB12 PO; +TORS20TA PO; -TRIA1SPR5 EACH NARE; +VENTAER INH
[2017-08-06] MEDS ORDERED: SODIUM CHLORID 0.9% 500 ML INJ 500 ML IV SCH (14:45)
[2017-08-06] MEDS ORDERED: NS 1000 ML IV SCH (14:45)
[2017-08-06] MEDS ORDERED: LACTATED RINGER'S 1000 ML IV PRN (14:45)
[2017-08-06] MEDS ORDERED: METOPROLOL TARTRATE 25 MG TAB PO PRN (14:45)
[2017-08-06] MEDS ORDERED: ceFAZolin 2 GM PREMIX 50 ML IV SCH (14:45)
[2017-08-06] MEDS ORDERED: CHLORHEXIDINE GLUCONATE 2 % 1 PACK (2 CLOTHS) TOPICAL PRN (14:45)
[2017-08-06] MEDS ORDERED: MUPIROCIN 2% OINT 1 APPLIC/GM SYR NASAL SCH (14:45)
[2017-08-06] MEDS ORDERED: CHLORHEXIDINE GLUCONATE 2 % 1 PACK (2 CLOTHS) TOPICAL SCH (14:45)
[2017-08-06] MEDS ORDERED: VANCOMYCIN 1000 MG/NS 250 ML IV SCH ×2 (14:45)
[2017-08-06] MEDS ORDERED: POVIDONE IODINE 5% (ANTISEPSIS KIT) 4 APPLICATIONS EACH NARE SCH (14:45)
[2017-08-06] MEDS ORDERED: LORazepam 1 MG TAB SL SCH ×2 (14:45)
[2017-08-06] MEDS ORDERED: SODIUM CHLORID 0.9% 500 ML IV PRN (14:45)
[2017-08-06] MEDS ORDERED: POVIDONE IODINE 5% (ANTISEPSIS KIT) 4 APPLICATIONS EACH NARE PRN (14:45)
[2017-08-06] MEDS ORDERED: SYMB160A INH (15:07)
[2017-08-06 15:08] VITALS: BP 88/54; PULSE 82; RESP 16; TEMP 97; O2SAT 96
[2017-08-06 15:16] LABS: AUTOMATED NEUTROPHIL # 6.3 TH/MM3 (1.8-7.7); BASOPHIL % 0.2 % (0.0-2.0); EOSINOPHIL # 0.1 TH/MM3 (0-0.4); EOSINOPHIL % 1.5 % (0.0-4.0); HEMATOCRIT 38.4 % (39.0-51.0); HEMO FLAGS DIFF FINAL; LYMPH % 20.5 % (9.0-44.0); LYMPHOCYTE # 1.9 TH/MM3 (1.0-4.8); MEAN CELL VOLUME 84.5 FL (80.0-100.0); MONO % 8.8 % (0.0-8.0); PLATELET COUNT 306 TH/MM3 (150-450); RED BLOOD COUNT 4.55 MIL/MM3 (4.50-5.90); RED CELL DISTRIBUTION WIDTH 16.3 % (11.6-17.2); WHITE BLOOD COUNT 9.2 TH/MM3 (4.0-11.0)
[2017-08-06 15:17] LABS: APTT (PATIENT) 26.4 SEC (24.3-30.1); PROTHROMBIN TIME - PATIENT 10.7 SEC (9.8-11.6)
[2017-08-06 15:27] LABS: BICARBONATE 29.6 MEQ/L (21.0-32.0); POTASSIUM 4.1 MEQ/L (3.5-5.1)
[2017-08-06] MEDS ORDERED: HEPARIN-NS/PF INJ 500 ML ONE (15:37)
--- NOTE | 2017-08-06 16:40 | CATHPROC ---
Schedule [facility] HIS Report Study Information Study Number Admission Scheduled Start Study Start [id number] Aug 06 2017 1:38PM 08/06/2017 Aug 06 2017 3:29PM [place] Service Electrophysiology Study Admit Source Facility Department Other [facility] - Vehicle Service Attendant Physician and Clinical Staff Initial Andrea Acuna Wood Car Builder Maren Pfeiffer,RT(R) TECH2 Other Anesthesia, HEAD NECK SURGEON Recorder Lisa Reid,KATHRYN Recorder Margaret Rossi,KATHRYN Scrub Husam Pitts,RT(R) Equipment Time Credit Assessment Analyst Description Size Mfg Part Number Used/Scraped [id number] 16:15 [employer]View INDUSTRIES PACK, CCL CUSTOM * Used *[id number] 16:15 [employer]View PACER RIOJAS, LIMB * 2530 *[id number] Used [id number] 16:15 [employer] BLANKET,WARM AIR CCL * Used *[id number] [id number] 16:24 [employer] MEDICAL CATHETER, JSN, QUAD FR 5 Used *[id number] 16:24 [employer] MEDICAL CATHETER, JSN, QUAD FR 5 Used *[id number] [id number] 16:24 [employer] MEDICAL CATHETER, JSN, QUAD FR 5 Used *[id number] [id number] 16:24 [employer] MEDICAL CATHETER, JSN, QUAD FR 5 Used *[id number] 091045 16:16 [employer] MEDICAL SHEATH, EPS, FR5 FAST CATH FR 5 Used *[id number] 638762 16:16 [employer] MEDICAL SHEATH, EPS, FR5 FAST CATH FR 5 Used *[id number] 310234 16:16 [employer] MEDICAL SHEATH, EPS, FR6 FAST CATH FR 6 Used *[id number] 479517 16:16 [employer] MEDICAL SHEATH, EPS, FR6 FAST CATH FR 6 Used *[id number] History: Allergies Allergy Reaction aspirin RESP DISTRESS ragweed pollen History: Risk Factors Dyslipidemia Previous MD Previous Heart Failure Yes Yes Yes Prior CABG Yes Diabetes Diabetes Therapy Yes Oral Labs Hgb (g/dl) Hct (%) RBC (MIL/MM3) WBC (l/cumm) Platelets (thousands) 11.60-17.00 35.00-51.00 4.00-5.90 4.00-11.00 150.00-450.00 12.3 38.4 4.5 9.2 306 Glucose (mg/dl) BUN (mg/dl) Creatinine (mg/dl) BUN:Creatinine (1:x) 74.00-106.00 7.00-18.00 0.50-1.30 10.00-20.00 96 21 1.4 15 Na (meq/l) K (meq/l) Cl (meq/l) CO2 (mmol/L) Ca (mg/dl) 136.00-145.00 3.50-5.10 98.00-107.00 21.00-32.00 8.50-10.10 139 4.1 103 29.6 9.2 PT (sec) PTT (sec) INR (PTT:PT) 9.80-11.60 24.30-30.10 0.90-1.10 10.7 26.4 1 Medication Medication Total Dose (Bolus/Oral) Medication Total Dosage/Unit 1% XYLOCAINE 20 mL Medications (Bolus/Oral) Medication Time Given Dosage/Unit Administered By Reason 1% XYLOCAINE 08/06/2017 4:20:17 PM 20 mL Andrea James 20 mL 1% XYLOCAINE given in lab by Andrea James in Right Groin via Subcutaneous. Initial Case Assessment Cardiovascular HR Rhythm NIBP Chest Pain 81 sr 81/51 0 Edema Present Skin color Skin None Normal Warm Dry Circulatory - Right Pulses Dorsalis Pedis Radial 1 2 Scale (0,1,2,3,4,d) Circulatory - Left Pulses Dorsalis Pedis Radial 1 2 Scale (0,1,2,3,4,d) Circulatory - Lower Extremities Color Lower Right Color Lower Left Normal Normal Neurological State Oriented to time-place- Alert Moves all extremities person Respiration - General Respiration Rate SpO2 (%) (B/min) 21 99 Chronological Log Time Study Chronological Log 15:30:51 Patient arrived via Bed. 15:30:54 Patient Name, D.O.B, / Armband Verified By R.N. 15:30:57 Consent signed by the physician and the patient and verified by the Vehicle Service Attendant staff. 15:30:57 History and physical on the chart. 15:30:59 Pre-op and post- op instructions given; patient acknowledges understanding of instructions. 15:31:02 Verbal Stimulation=2 Physical Stimulation=2 Airway=2 Respiration=2 TOTAL=8. (0=absent, 1=li mited, 2=present) 15:32:12 Patient has been NPO for More than 6Hrs. 15:32:18 Skin Breakdown- none per pt 15:32:22 2% CHLORHEXIDINE GLUCONATE WASH AND NASAL SWIPE DONE PRIOR TO PROCEDURE. 15:32:26 Patient Warmer Placed on the Table. 15:32:27 Disposable Defibrillator Pads Placed On Patient. 15:32:28 Jb Prominences Protected 15:32:30 A # 20 IV was noted in the Antecubital (left). Grade = 0 0.9ns kvo 15:53:11 Table restraints applied according to hospital policy 15:54:09 Bilateral Upper Chest Prepped Times Two. Assessment: Initial Case, HR=81 BPM, Rhythm=sr, NIBP=81/51 mmhg, Chest Pain=0, Edema=None, [place] r=Normal, Skin = Warm, Dry Right Pulses: Emiliano Ped=1, Radial=2 Left Pulses: Emiliano Ped=1, Radial=2 15:55:59 Lower Right Extremities: Color=Normal Lower Left Extremities: Color=Normal Neurological: State=Alert, Ox3, TORRES Respiration: Resp=21 B/min, SpO2=99 % 16:04:36 Reference ECG taken 16:06:52 Anesthesia at bedside. Assumes care of patient. 16:09:50 MD paged 16:15:35 MD arrived. Time Out. Correct patient, procedure, procedure equipment, site and side verified with physicia n present. Time 16:19:18 concurred by MD, individual staff and HEAD NECK SURGEON. Time Out #2 - Consents verified, patient in correct position, all results are labled and displa yed, safety precautions 16:19:41 taken, antibiotics administered. Time out concurred by MD, individual staff and HEAD NECK SURGEON in procedu re 16:19:46 Case Start 16:20:17 20 mL 1% XYLOCAINE given in lab by Andrea James in Right Groin via Subcutaneous. 16:22:10 Vascular access was obtained in the Fem Vein (right). 16:22:11 Vascular access was obtained in the Fem Vein (right). 16:22:13 Vascular access was obtained in the Fem Vein (right). 16:22:14 Vascular access was obtained in the Fem Vein (right). 16:22:47 A SHEATH, EPS, FR6 FAST CATH FR 6 was advanced into the Fem Vein (right) using the Modified Seldinger technique. 16:23:05 A SHEATH, EPS, FR6 FAST CATH FR 6 was advanced into the Fem Vein (right) using the Modified Seldinger technique. 16:23:15 A SHEATH, EPS, FR5 FAST CATH FR 5 was advanced into the Fem Vein (right) using the Modified Seldinger technique. 16:23:20 A SHEATH, EPS, FR5 FAST CATH FR 5 was advanced into the Fem Vein (right) using the Modified Seldinger technique. A CATHETER, JSN, QUAD FR 5 was advanced vis Fem Vein (right) and placed in the CS. Placement wa s visually 16:23:35 confirmed under fluoroscopy. A CATHETER, JSN, QUAD FR 5 was advanced vis Fem Vein (right) and placed in the HIS. Placement w as visually 16:24:24 confirmed under fluoroscopy. A CATHETER, JSN, QUAD FR 5 was advanced vis Fem Vein (right) and placed in the HRA. Placement w as visually 16:24:33 confirmed under fluoroscopy. A CATHETER, JSN, QUAD FR 5 was advanced vis Fem Vein (right) and placed in the RVA. Placement w as visually 16:24:48 confirmed under fluoroscopy. 16:28:00 Eps in progress. 16:37:23 Eps complete. 16:37:43 All Quad catheters were removed 16:38:19 Sheath(s) left in place, secured, 0.9% nacl connected and will be removed in holding. 16:38:49 Case End 16:39:27 No case complications noted. 16:39:29 Cine recording checked. 16:39:41 Initial procedure has been completed. Beginning additional procedure. End Study - Contrast Media Used In Study Contrast Total Opened (mL) Total Used (mL) Total Wasted (mL) Unspecified 0 0 0 End Study - Maximum Contrast Load Max Contrast Load (mL) 276.0 End Study - Radiation Exposure Fluoro Time (minutes) 0.4 End Study - Patient Disposition Complications Transferred To Interventional Outcome No Vehicle Service Attendant Holding successful
[2017-08-06] MEDS ORDERED: VANCOMYCIN 500 MG VIAL ONE (16:44)
[2017-08-06] MEDS ORDERED: LIDOCAINE HCL 2% 50 ML VIAL ONE (16:44)
[2017-08-06] MEDS ORDERED: LORazepam 2 MG/ML VIAL IV PUSH PRN (17:45)
[2017-08-06] MEDS ORDERED: LIDOCAINE HCL 1% 50 ML VIAL INFIL PRN (17:45)
[2017-08-06] MEDS ORDERED: ONDANSETRON HCL 4 MG/2 ML VIAL IV PUSH PRN (17:45)
[2017-08-06] MEDS ORDERED: oxyCODONE/ACETAMINOPHEN 5 MG/325 MG TAB PO PRN ×2 (17:45)
[2017-08-06] MEDS ORDERED: SODIUM CHLOR 0.9% 250 ML INJ 250 ML IV PRN (17:45)
[2017-08-06] MEDS ORDERED: ATROPINE SULFATE 1 MG/ML VIAL IV PUSH PRN (17:45)
[2017-08-06] MEDS ORDERED: SODIUM CHLORIDE 0.9% FLUSH 10 ML FLUSH IV FLUSH PRN (17:45)
[2017-08-06] MEDS ORDERED: BACITRACIN OINT 0.9 GM PKT TOP ONE (17:45)
[2017-08-06] MEDS ORDERED: DO NOT ADM ANY ANTICOAGULANT DRUGS PRN (17:51)
--- NOTE | 2017-08-06 17:53 | CATHPROC ---
[facility] HIS Report Study Information Study Number Admission Scheduled Start Study Start [id number] Aug 06 2017 1:38PM 08/06/2017 Aug 06 2017 4:42PM [place] Service Cardiac Pacer/ICD Admit Source Facility Department Other [facility] - Learning Designer Physician and Clinical Staff Initial Andrea Acuna Travelift Operator Lisa Reid RN Other Anesthesia, RELATIONS SPECIALIST Recorder Margaret Rossi RN Recorder Maren Pfeiffer,RT(R) TECH2 Scrub Husam Pitts,RT(R) Procedures Performed Procedure Lead Insertion Equipment Time Psychologist Experimental Description Size Mfg Part Number Used/Scraped DERMABOND, ADHESIVE SKIN [id number] 17:03 CORDIS/PACER * Used GLUE MINI *[id number] 17:03 MEDLINE INDUSTRIES SUTURE, STRIP PLUS 1/2" * Used *[id number] 17:03 MEDLINE PACER RIOJAS, LIMB * 2530 *[id number] Used [id number] 17:03 MEDLINE PACER PACK, PACER CUSTOM * Used *[id number] 17:13 [employer] PACER SAFE SHEATH, FR9, 13CM FR 9 [id number] Used 17:05 Needle Sponge Count 2 22 Used 17:05 Needle Sponge Count 20 200 Used 17:04 Needle Sponge Count 3 3 Used SUTURE, 0 ETHIBOND [CT1] (CX21D), 8pk SUTURE, 2-0 VICRYL [CT1] ([id number]) SUTURE, 2-0 VICRYL [CT1] (ENS645G) [id number] 17:03 [place] MEDICAL BLANKET,WARM AIR CCL * Used *[id number] [facility] PAD, ELECTROSURGICAL 17:03 * [id number] *[id number] Used SURGICAL GROUNDING ORANGE 17:16 VITATRON MEDTRONIC DEFIBRILLATOR, VISIA AF MRI VR VVEVVIR [id number] Used LEAD, SPRINT QUATTRO SECURE [id number] 17:13 VITATRON MEDTRONIC 62CM Used S 62CM *[id number] 17:03 [employer] RUFINA. / * Used *27107 Equipment Model, Serial, Lot Number and Expiration Data Description Model Number Serial Number Lot Number Expiration Date DEFIBRILLATOR, VISIA AF MRI VR [id number] 12-20-2018 LEAD, SPRINT QUATTRO SECURE S [id number] 08-29-2018 62CM History: Allergies Allergy Reaction aspirin RESP DISTRESS ragweed pollen History: Risk Factors Dyslipidemia Previous NV Previous Heart Failure Yes Yes Yes Prior CABG Yes Diabetes Yes Medication Medication Total Dose (Bolus/Oral) Medication Total Dosage/Unit 2% XYLOCAINE 50 mL Medications (Bolus/Oral) Medication Time Given Dosage/Unit Administered By Reason 2% XYLOCAINE 08/06/2017 5:08:21 PM 50 mL Andrea James For pain 50 mL 2% XYLOCAINE given in lab by Andrea James in Left shoulder via Subcutaneous. Ordered by Andrea James. Reason: For pain. Medication (Drip) Medication Time Given Dosage/Unit Concentration/Unit Diluent (ml) Solution ANCEF 08/06/2017 4:45:41 PM 1 g 1 g ANCEF given in lab by Andrea James via Peripheral IV. Ordered by Andrea James. VANCOMYCIN DRIP 08/06/2017 4:45:19 PM 1 g 1 g VANCOMYCIN DRIP given in lab by Andrea James via Peripheral IV. Ordered by Andrea James. Final Case Assessment Cardiovascular HR Rhythm NIBP Chest Pain 75 sr 89/58 0 Edema Present Skin color Skin None Normal Warm Dry Neurological State Oriented to time-place- Alert Moves all extremities person Respiration - General Respiration Rate SpO2 (%) (B/min) 18 95 Chronological Log Time Study Chronological Log 16:39:48 Initial procedure has been completed. Beginning additional procedure. 16:41:57 NOTE: This patient is undergoing an additional procedure while still in the Cardiac Cath L ab. 16:42:00 2% CHLORHEXIDINE GLUCONATE WASH AND NASAL SWIPE DONE PRIOR TO PROCEDURE. 16:42:03 Anesthesia remains at bedside assuming care of patient. 16:42:31 Bovie ground pad applied to: right thigh 16:42:57 Upper Chest Prepped Times Two. 16:45:19 1 g VANCOMYCIN DRIP given in lab by Andrea James via Peripheral IV. Ordered by Abraham James. 16:45:41 1 g ANCEF given in lab by Andrea James via Peripheral IV. Ordered by Andrea James. First Sponge And Instrument Count Done by Lisa Reid RN. 16:56:18 Hypo's: 3, Sponges: 20, Bovie/scratch: 2 Sutures: 10, Blades: 1, Instruments: 26, Syveck Patches: 0 17:03:15 Reference ECG taken Time Out. Correct patient, procedure, procedure equipment, site and side verified with physicia n present. Time 17:05:17 concurred by MD, individual staff and RELATIONS SPECIALIST. Time Out #2 - Consents verified, patient in correct position, all results are labled and displa yed, safety precautions 17:05:24 taken, antibiotics administered. Time out concurred by MD, individual staff and RELATIONS SPECIALIST in procedu re 17:05:29 Case Start 50 mL 2% XYLOCAINE given in lab by Andrea James in Left shoulder via Subcutaneous. Ordered by Andrea James. 17:08:21 Reason: For pain. 17:08:49 Vascular access was obtained in the Subclav. Vein (Lft. 17:08:54 Wire inserted 17:08:57 Surgical Incision Made. 17:09:07 A pocket was created at the L Upper Chest. 17:12:17 A SAFE SHEATH, FR9, 13CM FR 9 was advanced into the Subclav. Vein (Lft using the Percutaneo us technique. 17:12:30 Lead placement verified under fluoroscopy 17:12:39 A LEAD, SPRINT QUATTRO SECURE S 62CM 62CM was inserted and positioned in the RV. 17:14:31 The RV lead impedance and threshold being tested. 17:14:32 The RV lead was sutured to the fascia. 17:20:40 A DEFIBRILLATOR, VISIA AF MRI VR VVEVVIR was connected and placed in the pocket. 17:23:51 Pocket flushed with antibiotic solution Second Sponge And Instrument Count Done by Lisa Reid RN. 17:24:20 Hypo's: 3, Sponges: 20, Bovie/scratch: 2 Sutures: ~SUTURE~, Blades: 1, Instruments: 26, Syveck Patches: 0 17:35:00 Implant Procedure was performed. 17:35:19 A ICD Implant . (Single) 17:40:59 The pocket was closed. 17:43:39 Case End The Final Sponge And Instrument Count Done by Andrea James. 17:48:13 Hypo's: 3, Sponges: 20, Bovie/scratch: 2 Sutures: 10, Blades: 1, Instruments: 26, Syveck Patches: 0 17:48:30 PACU called. Spoke to community health advocate 17:48:53 Steri-strips and a sterile dressing applied to site. 17:48:58 A sling was placed on the affected arm. Assessment: Final Case, HR=75 BPM, Rhythm=sr, NIBP=89/58 mmhg, Chest Pain=0, Edema=None, Color= Normal, Skin = Warm, Dry 17:49:10 Neurological: State=Alert, Ox3, TORRES Respiration: Resp=18 B/min, SpO2=95 % 17:49:41 Patient moved to stretcher 17:49:44 Implantable Device card placed in patient's chart. 17:49:45 Bedside Report will be given. 17:49:47 Defibrillator and ground pads removed. Skin intact. End Study - Contrast Media Used In Study Contrast Total Opened (mL) Total Used (mL) Total Wasted (mL) Omnipaque 0 0 0 End Study - Radiation Exposure Fluoro Time (minutes) 2.6 End Study - Patient Disposition Complications Transferred To Telemetry Bed
[2017-08-06] MEDS ORDERED: metFORMIN HCL 500 MG TAB PO SCH (18:00)
--- NOTE | 2017-08-06 18:49 | RADRPT ---
EXAM DATE/TIME: 08/06/2017 18:20 [place] COMPARISON: CHEST SINGLE AP, June 30, 2017, 15:46. INDICATIONS : Post ICD placement. MEDICAL HISTORY : None. SURGICAL HISTORY : CABG. ENCOUNTER: Initial ACUITY: 1 day PAIN SCORE: Non-responsive. LOCATION: Bilateral chest FINDINGS: A single view of the chest demonstrates the lungs to be symmetrically aerated with increased intersti tial markings concerning for some degree of vascular congestion or volume overload. Heart size is bor derline prominent. Linear scarring/atelectasis in the left lingular region. Improving atelectatic ofelia nges in the right base. Postsurgical changes with findings of prior CABG. Interval placement of a lef t subclavian unipolar pacer without pneumothorax. Osseous structures are intact. CONCLUSION: 1. Interval placement of a left subclavian unipolar pacer without pneumothorax. 2. Cardiomegaly with slight interstitial prominence characteristic of some degree of vascular congest ion or volume overload. This actually appears slightly improved when compared to prior. 3. Stable linear atelectasis/scarring in the left lingula. 4. Stable postsurgical changes with findings of prior CABG Tiago Lopes MD on August 06, 2017 at 18:45 Board Certified Radiologist. This report was verified electronically.
[2017-08-06 20:00] VITALS: BP 85/55; PULSE 82; RESP 16; TEMP 98.3; O2SAT 99
[2017-08-06] MEDS: APIXABAN 5 MG TABLET PO SCH (20:51)
[2017-08-06] MEDS: VALSARTAN 40 MG TAB PO SCH (20:52)
[2017-08-06] MEDS: METOPROLOL SUCCINATE 25 MG EXTENDED RELEASE TAB PO SCH (20:52)
[2017-08-06] MEDS: SODIUM CHLORIDE 0.9% FLUSH 10 ML FLUSH IV FLUSH SCH (20:52)
[2017-08-06] MEDS: BUDESONIDE-FORMOTEROL 160/4.5 MCG INHALER INH SCH (20:52)
[2017-08-06 21:00] VITALS: PULSE 89
[2017-08-06] MEDS ORDERED: ATORVASTATIN 40 MG TAB PO SCH (21:00)
[2017-08-06] MEDS ORDERED: TEMAZEPAM 15 MG CAP PO PRN (21:00)
[2017-08-06 23:00] VITALS: BP 82/51; PULSE 89; RESP 18; TEMP 98.3; O2SAT 96
[2017-08-07] MEDS: ceFAZolin 2 GM PREMIX 50 ML IV SCH ×2 (01:35→08:49)
[2017-08-07 03:00] VITALS: BP 82/57; PULSE 90; RESP 16; TEMP 98.6; O2SAT 100
[2017-08-07 07:20] VITALS: PULSE 87
[2017-08-07 08:00] VITALS: BP 80/53; PULSE 90; RESP 18; TEMP 97.5; O2SAT 93
[2017-08-07] MEDS ORDERED: CEPH-460 PO (08:23)
--- NOTE | 2017-08-07 08:27 | PD.CARD.PN ---
Subjective Subjective Remarks Feels okay. Objective Medications Current Medications Medications (Trade) Dose Ordered Sig/Nava Route Start Time Stop Time Status Last Admin Lactated Ringer's 1,000 ml @ 30 mls/hr Q24H PRN IV 08/06/17 14:45 08/09/17 14:44 Sodium Chloride 500 ml @ 30 mls/hr [id number] PRN IV 08/06/17 14:45 08/09/17 14:44 (Lopressor) 25 mg CAB STARTER PRN PO 08/06/17 14:45 08/09/17 14:44 (Betadine 5% Antisepsis Kit) 1 applic CAB STARTER PRN EACH NARE 08/06/17 14:45 08/09/17 14:44 08/06/17 15:15 (Chlorhexidine 2% Cloth) 3 pack CAB STARTER PRN TOPICAL 08/06/17 14:45 08/09/17 14:44 Sodium Chloride 1,000 ml @ 30 mls/hr Q24H IV 08/06/17 14:45 Cefazolin Sodium/ Dextrose 50 ml @ 100 mls/hr CAB STARTER IV 08/06/17 14:45 08/09/17 14:44 08/06/17 16:45 Vancomycin HCl 1000 mg/Sodium Chloride 250 ml @ 250 mls/hr CAB STARTER IV 08/06/17 14:45 08/09/17 14:44 08/06/17 16:45 (Ativan) 1 mg CAB STARTER SL 08/06/17 14:45 08/09/17 14:44 (Betadine 5% Antisepsis Kit) 2 applic CAB STARTER EACH NARE 08/06/17 14:45 08/09/17 14:44 (Bactroban Nasal 2% Oint) 1 applic CAB STARTER NASAL 08/06/17 14:45 08/09/17 14:44 (Chlorhexidine 2% Cloth) 3 pack CAB STARTER TOPICAL 08/06/17 14:45 08/09/17 14:44 08/06/17 15:15 Cefazolin Sodium/ Dextrose 50 ml @ 100 mls/hr Q8H IV 08/07/17 01:00 08/07/17 17:29 08/07/17 01:35 (Restoril) 15 mg HS PRN PO 08/06/17 21:00 (Zofran Inj) 4 mg Q4H PRN IV PUSH 08/06/17 17:45 (NS Flush) 2 ml BID IV FLUSH 08/06/17 21:00 08/06/17 20:52 (NS Flush) 2 ml UNSCH PRN IV FLUSH 08/06/17 17:45 (Percocet 5-325 Mg) 1 tab Q4H PRN PO 08/06/17 17:45 (Percocet 5-325 Mg) 2 tab Q4H PRN PO 08/06/17 17:45 (Ativan Inj) 0.5 mg UNSCH PRN IV PUSH 08/06/17 17:45 08/07/17 17:44 (Atropine Inj) 0.5 mg UNSCH PRN IV PUSH 08/06/17 17:45 Sodium Chloride 250 ml @ 500 mls/hr ONCE PRN IV 08/06/17 17:45 08/07/17 17:44 (Xylocaine 1% Inj (50 ml)) 10 ml UNSCH PRN INFIL 08/06/17 17:45 08/07/17 17:44 (Eliquis) 5 mg BID PO 08/06/17 21:00 08/06/17 20:51 (Lipitor) 40 mg HS PO 08/06/17 21:00 08/06/17 20:52 (Symbicort 160-4.5 Mcg Inh) 1 puff Q12HR INH 08/06/17 21:00 (Glucophage) 500 mg BIDPC PO 08/06/17 18:00 (Toprol Xl) 25 mg BID PO 08/06/17 21:00 08/06/17 20:52 (Aldactone) 25 mg DAILY PO 08/07/17 09:00 (Demadex) 20 mg DAILY PO 08/07/17 09:00 (Diovan) 40 mg BID PO 08/06/17 21:00 08/06/17 20:52 Miscellaneous Information ALL NURSING DEPARTME... UNSCH PRN .XX 08/06/17 17:51 08/07/17 17:50 Vital Signs / I&O Vital Signs Date Time Temp Pulse Resp B/P (MAP) Pulse Ox O2 Delivery O2 Flow Rate FiO2 08/07/17 03:00 98.6 90 16 82/57 (65) 100 08/06/17 23:00 98.3 89 18 82/51 (61) 96 08/06/17 21:00 89 08/06/17 20:00 98.3 82 16 85/55 (65) 99 08/06/17 18:43 84 16 84/54 (64) 100 Room Air 08/06/17 18:15 82 16 82/52 (62) 100 Nasal Cannula 2 08/06/17 18:00 83 16 87/52 (64) 100 Nasal Cannula 2 08/06/17 17:51 97.5 85 16 85/50 (62) 99 Nasal Cannula 2 08/06/17 15:08 97.0 82 16 88/54 (65) 96 I/O 08/06/17 08/06/17 08/06/17 08/07/17 08/07/17 08/07/17 07:00 15:00 23:00 07:00 15:00 23:00 Intake Total 770 ml Balance 770 ml Intake Oral 720 ml IV Total 50 ml # Voids 3 Physical Exam GENERAL: Well-nourished, well-developed patient. SKIN: Warm and dry. Incisions well approximated without erythema or drainage. HEAD: Normocephalic. EYES: No scleral icterus. No injection or drainage. NECK: Supple, trachea midline. No JVD or lymphadenopathy. CARDIOVASCULAR: Regular rate and rhythm without murmurs, gallops, or rubs. RESPIRATORY: Breath sounds equal bilaterally. No accessory muscle use. GASTROINTESTINAL: Abdomen soft, non-tender, nondistended. EXTREMITIES: No cyanosis, or edema. NEUROLOGICAL: Awake, alert, and oriented x 3. Non-focal. Laboratory Laboratory Tests Test 08/06/17 14:33 White Blood Count 9.2 TH/MM3 Red Blood Count 4.55 MIL/MM3 Hemoglobin 12.3 GM/DL Hematocrit 38.4 % Mean Corpuscular Volume 84.5 FL Mean Corpuscular Hemoglobin 27.0 PG Mean Corpuscular Hemoglobin Concent 32.0 % Red Cell Distribution Width 16.3 % Platelet Count 306 TH/MM3 Mean Platelet Volume 8.6 FL Neutrophils (%) (Auto) 69.0 % Lymphocytes (%) (Auto) 20.5 % Monocytes (%) (Auto) 8.8 % Eosinophils (%) (Auto) 1.5 % Basophils (%) (Auto) 0.2 % Neutrophils # (Auto) 6.3 TH/MM3 Lymphocytes # (Auto) 1.9 TH/MM3 Monocytes # (Auto) 0.8 TH/MM3 Eosinophils # (Auto) 0.1 TH/MM3 Basophils # (Auto) 0.0 TH/MM3 CBC Comment DIFF FINAL Differential Comment Prothrombin Time 10.7 SEC Prothromb Time International Ratio 1.0 RATIO Activated Partial Thromboplast Time 26.4 SEC Blood Urea Nitrogen 21 MG/DL Creatinine 1.41 MG/DL Random Glucose 96 MG/DL Calcium Level 9.2 MG/DL Sodium Level 139 MEQ/L Potassium Level 4.1 MEQ/L Chloride Level 103 MEQ/L Carbon Dioxide Level 29.6 MEQ/L Anion Gap 6 MEQ/L Estimat Glomerular Filtration Rate 49 ML/MIN Imaging Last Impressions Chest X-Ray 08/06/17 0000 Signed Impressions: Service Date/Time: Sunday, August 06, 2017 18:20 - CONCLUSION: 1. Interval placement of a left subclavian unipolar pacer without pneumothorax. 2. Cardiomegaly with slight interstitial prominence characteristic of some degree of vascular congestion or volume overload. This actually appears slightly improved when compared to prior. 3. Stable linear atelectasis/scarring in the left lingula. 4. 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 (2) S/P ICD (internal cardiac defibrillator) procedure ICD Codes: Z95.810 - Presence of automatic (implantable) cardiac defibrillator Plan: Device function appropriate, chest x-ray negative for pneumothorax. Discharge home. Follow-up with Dr. bolivar in 2 weeks per my discussion with him. Ailyn Park Aug 07, 2017 08:27
[2017-08-07] MEDS: VALSARTAN 40 MG TAB PO SCH (08:49)
[2017-08-07] MEDS: APIXABAN 5 MG TABLET PO SCH (08:50)
[2017-08-07] MEDS ORDERED: TORSEMIDE 20 MG TAB PO SCH (09:00)
[2017-08-07] MEDS ORDERED: SPIRONOLACTONE 25 MG TAB PO SCH (09:00)
[2017-08-07] MEDS: BUDESONIDE-FORMOTEROL 160/4.5 MCG INHALER INH SCH (09:26)
[2017-08-07] MEDS: SODIUM CHLORIDE 0.9% FLUSH 10 ML FLUSH IV FLUSH SCH (09:27)
[2017-08-07] MEDS: METOPROLOL SUCCINATE 25 MG EXTENDED RELEASE TAB PO SCH (09:27)
--- NOTE | 2017-08-07 16:17 | EKG ---
Date Performed: 08/06/2017 Time Performed: 18:26:50 PTAGE: 76 years EKG: Sinus rhythm LOW QRS VOLTAGE ANTEROLATERAL MYOCARDIAL INFARCTION , PROBABLY RECENT ACUTE ME Since PREVIOUS TRACING , no significant change noted PREVIOUS TRACIN08/06/2017 15.17 DOCTOR: Anali Braswell Interpretating Date/Time 08/07/2017 16:16:21
--- NOTE | 2017-08-07 16:17 | EKG ---
Date Performed: 08/07/2017 Time Performed: 05:59:34 PTAGE: 76 years EKG: Sinus rhythm Right axis deviation Anterolateral infarct - age undetermined Low QRS voltages in limb leads Abnorma l ECG Since PREVIOUS TRACING , no significant change noted PREVIOUS TRACIN08/06/2017 18.26 DOCTOR: Anali Braswell Interpretating Date/Time 08/07/2017 16:16:37
--- NOTE | 2017-08-07 16:17 | EKG ---
Date Performed: 08/06/2017 Time Performed: 15:17:08 PTAGE: 76 years EKG: Sinus rhythm . Right axis deviation Anterolateral infarct - age undetermined Low QRS voltages in limb leads Abnorm al ECG Since PREVIOUS TRACING , no significant change noted PREVIOUS TRACIN07/21/2017 06.57 DOCTOR: Anali Braswell Interpretating Date/Time 08/07/2017 16:16:05
== END 2017-08-07 11:01 | disposition home or self-care (01) ==
LOC: HDIC 13:38 → HDOC 13:38 → HCIS 19:03 → HDOC 08-07 11:01
PROVIDERS: ATTEND Internal Medicine Interventional Cardiology
DX: I50.9 Heart failure, unspecified (principal); I25.5 Ischemic cardiomyopathy; I25.2 Old myocardial infarction; E11.9 Type 2 diabetes mellitus without complications; E78.00 Pure hypercholesterolemia, unspecified; K21.9 Gastro-esophageal reflux disease without esophagitis; H91.92 Unspecified hearing loss, left ear; Z95.1 Presence of aortocoronary bypass graft; Z79.84 Long term (current) use of oral hypoglycemic drugs
CPT/HCPCS: 00534; 33249; 71010; 80048; 85025; 85610; 85730; 86850; 86900; 86901; 93005; 93620; C1722; C1730; C1777; J0690; J1644; J3370; J7050